=== PATIENT | male | born 1945 | race Two or more races ===

== ENCOUNTER → 2016-08-16 | Outpatient (CLI) | payer MEDICARE, OTHER, BC ==
[2016-08-16 10:16] LABS: FREE T3 3.71 pg/mL (2.77-5.27)
[2016-08-16 10:30] LABS: THYROID STIMULATING HORMONE 2.09 uIU/mL (0.47-4.68)
[2016-08-16 11:01] LABS: FOLATE 9.54 ng/mL (>2.76)
== END ==
LOC: OD 08:43
PROVIDERS: ATTEND Specialist
DX: F03.90 Unspecified dementia, unspecified severity, without behavioral disturbance, psychotic disturbance, mood disturbance, and anxiety (principal); G47.33 Obstructive sleep apnea (adult) (pediatric)
CPT/HCPCS: 36415; 82607; 82746; 84439; 84443; 84481; 86376

== ENCOUNTER → 2016-11-17 | Outpatient (CLI) | payer BC, MEDICARE, OTHER ==
[2016-11-17 09:18] LABS: ABSOLUTE BASOPHILS # (AUTO) 0.1 10^3/uL (0.0-0.2); ABSOLUTE EOSINOPHILS # (AUTO) 0.1 10^3/uL (0.0-0.6); ABSOLUTE LYMPHOCYTES (AUTO) 1.4 10^3/uL (0.5-4.7); ABSOLUTE MONOCYTES (AUTO) 0.4 10^3/uL (0.1-1.4); ABSOLUTE NEUT (AUTO) 3.3 10^3/uL (1.7-8.2); EOSINOPHILS % (AUTO) 2.4 % (0-6); HEMATOCRIT 37.5 % (37.9-51.0); HEMOGLOBIN 12.9 g/dL (13.5-17.0); HGB HCT DIFFERENCE 1.2; LYMPHOCYTES % (AUTO) 26.8 % (13-45); MEAN CORPUSCULAR HEMOGLOBIN 31.4 pg (27.0-33.4); MEAN CORPUSCULAR HGB CONC 34.3 g/dL (32.0-36.0); MEAN CORPUSCULAR VOLUME 91 fl (80-97); MONOCYTES % (AUTO) 7.5 % (3-13); RED CELL DISTRIBUTION WIDTH 13.6 % (11.5-14.0); SEGMENTED NEUTROPHILS % (AUTO) 62.3 % (42-78); WHITE BLOOD COUNT 5.2 10^3/uL (4.0-10.5)
[2016-11-17 09:43] LABS: ALANINE AMINOTRANSFERASE 26 U/L (21-72); ALBUMIN 3.9 g/dL (3.5-5.0); ALKALINE PHOSPHATASE 57 U/L (38-126); ANION GAP 9 (5-19); ASPARTATE AMINO TRANSFERASE 19 U/L (17-59); BILIRUBIN,DIRECT 0.3 mg/dL (0.0-0.4); BILIRUBIN,TOTAL 0.7 mg/dL (0.2-1.3); BLOOD UREA NITROGEN 18 mg/dL (7-20); CALCIUM 9.2 mg/dL (8.4-10.2); CARBON DIOXIDE 26 mmol/L (22-30); CHLORIDE 108 mmol/L (98-107); CHOLESTEROL 170.96 mg/dL (0-200); CREATININE RESULT 0.82 mg/dL (0.52-1.25); Direct HDL 46 mg/dL (>40); GLUCOSE 130 mg/dL (75-110); SODIUM 143.1 mmol/L (137-145); TOTAL PROTEIN 6.6 g/dL (6.3-8.2); TRIGLYCERIDES 62 mg/dL (<150)
[2016-11-17 09:54] LABS: DIRECT LDL 114 mg/dL (<100)
== END ==
LOC: OD 08:11
PROVIDERS: ATTEND Internal Medicine
DX: Z12.5 Encounter for screening for malignant neoplasm of prostate (principal); Z12.12 Encounter for screening for malignant neoplasm of rectum; I10 Essential (primary) hypertension; F32.9 Major depressive disorder, single episode, unspecified; E78.2 Mixed hyperlipidemia; Z79.899 Other long term (current) drug therapy
CPT/HCPCS: 36415; 84443; 85025; 82272; 80053; 80061; G0103

== ENCOUNTER 2016-12-05 04:02 | Emergency (ER) | payer BC, MEDICARE, OTHER ==
--- NOTE | 2016-12-05 06:05 | ER Document Report ---
ED Extremity Problem, Lower - General Chief Complaint: Ankle Pain Stated Complaint: LEFT ANKLE PAIN Time Seen by Provider: 12/05/16 06:01 Notes: The patient is a 71-year-old male, past medical history gout, OA, DM, HTN, peripheral neuropathy, presents with 1 days of left ankle pain. He has not had this pain before and does not remember an injury. 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 Denies redness, fevers, numbness, tingling or any other joint pain. TRAVEL OUTSIDE OF THE [place] IN LAST 30 DAYS: No - Related Data Allergies/Adverse Reactions: No Known Allergies Allergy (Verified 03/01/16 15:03) Past Medical History - General Information source: Patient - Social History Smoking Status: Current Every Day Smoker Family History: Reviewed & Not Pertinent Patient has suicidal ideation: No Patient has homicidal ideation: No - Past Medical History Cardiac Medical History: Reports: Hx Coronary Artery Disease, Hx Hypercholesterolemia, Hx Hypertension Denies: Hx Congestive Heart Failure, Hx DVT, Hx Heart Attack, Hx Pulmonary Embolism Pulmonary Medical History: Denies: Hx Asthma, Hx Bronchitis, Hx COPD, Hx Pneumonia, Hx Tuberculosis Neurological Medical History: Denies: Hx Cerebrovascular Accident, Hx Seizures Endocrine Medical History: Reports: Hx Diabetes Mellitus Type 1, Hx Diabetes Mellitus Type 2. Denies: Hx Hyperthyroidism, Hx Hypothyroidism Renal/ Medical History: Denies: Hx Peritoneal Dialysis GI Medical History: Denies: Hx Cirrhosis, Hx Gastroesophageal Reflux Disease, Hx Hepatitis Musculoskeltal Medical History: Reports Hx Arthritis Skin Medical History: Denies Hx Eczema, Denies Hx Psoriasis Psychiatric Medical History: Denies: Hx Depression Infectious Medical History: Denies: Hx Hepatitis Past Surgical History: Reports: Hx Abdominal Surgery, Hx Appendectomy, Hx Herniorrhaphy. Denies: Hx Pacemaker - Immunizations Hx Diphtheria, Pertussis, Tetanus Vaccination: Yes Review of Systems - Review of Systems Notes: REVIEW OF SYSTEMS: CONSTITUTIONAL: -fevers, -chills EENT: -eye pain, -difficulty swallowing, -nasal congestion CARDIOVASCULAR:-chest pain, -syncope. RESPIRATORY: -cough, -SOB GASTROINTESTINAL: -abdominal pain, - nausea, -vomiting, -diarrhea GENITOURINARY: -dysuria, -hematuria MUSCULOSKELETAL: +left ankle pain, -back pain, -neck pain SKIN: -rash or skin lesions. HEMATOLOGIC: -easy bruising or bleeding. LYMPHATIC: -swollen, enlarged glands. NEUROLOGICAL: -altered mental status or loss of consciousness, -headache, - neurologic symptoms PSYCHIATRIC: -anxiety, -depression. ALL OTHER SYSTEMS REVIEWED AND NEGATIVE. Physical Exam - Vital signs Vitals: Temp Pulse Resp BP Pulse Ox 98 F 70 18 156/64 H 96 12/05/16 04:12 12/05/16 04:12 12/05/16 04:12/05/16 04:12/05/16 04:12 - Notes Notes: PHYSICAL EXAMINATION: GENERAL: Well-appearing, well-nourished and in no acute distress. HEAD: Atraumatic, normocephalic. EYES: Pupils equal round and reactive to light, extraocular movements intact, sclera anicteric, conjunctiva are normal. ENT: nares patent, oropharynx clear without exudates. Moist mucous membranes. NECK: Normal range of motion, supple without lymphadenopathy LUNGS: Breath sounds clear to auscultation bilaterally and equal. No wheezes rales or rhonchi. HEART: Regular rate and rhythm without murmurs ABDOMEN: Soft, nontender, normoactive bowel sounds. No guarding, no rebound. No masses appreciated. EXTREMITIES: Normal range of motion, no pitting or edema. No cyanosis. No ankle swelling or redness. Tenderness over left medial malleolus. NEUROLOGICAL: Cranial nerves grossly intact. Normal speech, normal gait. Normal sensory and motor exams. PSYCH: Normal mood, normal affect. SKIN: Warm, Dry, normal turgor, no rashes or lesions noted. Course - Re-evaluation Re-evalutation: Patient appears well and no evidence of septic joint. X-ray does not show anything acute fractures or other findings. Instructed him to begin anti- inflammatories and follow-up with his primary care physician and orthopedics as needed. - Vital Signs Vital signs: Temp Pulse Resp BP Pulse Ox 98 F 70 18 156/64 H 96 12/05/16 04:12 12/05/16 04:12 12/05/16 04:12/05/16 04:12/05/16 04:12 - Diagnostic Test Radiology reviewed: Image reviewed, Reports reviewed Radiology results interpreted by me: Left ankle x-ray: NAD Discharge - Discharge Clinical Impression: Left ankle pain Qualifiers: Chronicity: acute Qualified Code(s): M25.572 - Pain in left ankle and joints of left foot Condition: Stable Disposition: HOME, SELF-CARE Additional Instructions: Take Motrin or Naprosyn to help with any ankle pain. Follow-up with your primary care physician. Arthralgia Arthralgia is pain in the joints. We use the word arthralgia to describe joint pain where there's no history of injury, no known joint disease, and the joints are normal to examination. Arthralgia can be a symptom of an acute illness, such as influenza, hepatitis, or serum sickness. Sometimes the joint pain comes before any other symptoms. Arthralgia can also be an early symptom of joint disease, such as rheumatoid arthritis or lupus. If arthralgia is accompanied by an acute illness that explains the joint pain, such as mononucleosis, no further testing needs to be done. When there's no clear reason for the pain, tests may be done to see if there's an inflammatory disease of the joints. The usual treatment is anti-inflammatory medication, such as ibuprofen. Joint aches can be soothed with a heating pad or hot compress. If joints remain painful more than a few days, you'll need testing and followup. Return if a joint becomes swollen, red, or severely painful. Forms: Elevated Blood Pressure Referrals: REAL KHALIL MD [Primary Care Provider] - Follow up as needed
[2016-12-05] MEDS ORDERED: NAPROXEN 250 MG TABLET PO ONE (06:29)
--- NOTE | 2016-12-05 06:30 | RADIOLOGY REPORT (SQ) ---
EXAM DESCRIPTION: ANKLE LEFT COMPLETE COMPLETED DATE/TIME: 12/05/2016 6:17 am REASON FOR STUDY: left ankle pain . Pain at the medial malleolus. COMPARISON: None. NUMBER OF VIEWS: Three views. TECHNIQUE: AP, lateral, and oblique radiographic images acquired of the left ankle. LIMITATIONS: None. FINDINGS: MINERALIZATION: Normal. BONES: No acute fracture or dislocation. JOINTS: No effusion. SOFT TISSUES: No soft tissue swelling. No radiopaque foreign body. Vascular calcifications are noted . IMPRESSION: No radiographic evidence of acute injury. TECHNICAL DOCUMENTATION: JOB ID: [id number] [place]-[id number] [employer]- All Rights Reserved
[2016-12-05 06:56] VITALS: BP 142/59
== END 2016-12-05 06:54 | disposition home or self-care (01) ==
LOC: ER 04:02
DX: M25.572 Pain in left ankle and joints of left foot (principal); M10.9 Gout, unspecified; M19.90 Unspecified osteoarthritis, unspecified site; E11.9 Type 2 diabetes mellitus without complications; I10 Essential (primary) hypertension; F17.200 Nicotine dependence, unspecified, uncomplicated
CPT/HCPCS: 99283

== ENCOUNTER → 2017-04-27 | Outpatient (CLI) | payer BC, MEDICARE, OTHER ==
--- NOTE | 2017-04-27 13:08 | XCELERA REPORT ---
[address] [address] Lower Extremity Arterial Evaluation Name: TONIARICHARD DAN Age: 72 yrs Gender: Male : 1945 Patient Status: Outpatient Patient Location: Study Date: 04/27/2017 08:11 AM Procedure: A color flow and duplex scan of the lower extremity arteries was performed bilaterally with velocity and waveform anaylsis. Ankle brachial indicies performed. Reason For Study: LEG PAIN Ordering Physician: FEDERICA KELLY Performed By: Ninfa Estevez Measurements and Calculations Right Left UM RN PSV 188.6 147.6 cm/sec Prox PFA PSV -124.5 -156.3 cm/sec Prox SFA PSV -128.9 113.1 cm/sec Mid SFA PSV -111.9 -97.8 cm/sec Dist SFA PSV -104.8 -103.9 cm/sec Prox Pop A PSV 98.7 102.6 cm/sec Dist ZHANNA PSV 91.8 36.3 cm/sec Prox GREEN HIDE INSPECTOR PSV 37.9 cm/sec Mid GREEN HIDE INSPECTOR PSV 39.3 41.1 cm/sec Dist GREEN HIDE INSPECTOR PSV 23.0 20.6 cm/sec Abdon Pedis PSV 79.9 76.1 cm/sec Right Side Arterial Evaluation Normal velocity and triphasic waveforms noted from the Common Femoral artery to the Anterior Tibial artery. Biphasic with well preserved amplitude in the Posterior Tibial artery'/. 0-19% stenosis at the Posterior Tibial artery Ankle Brachial index is 0.8. Left Side Arterial Evaluation Normal velocity and triphasic waveforms noted from the Common Femoral artery to the Popliteal artery. Biphasic with well preserved amplitude in the infrageniculate vessels. 0-19% stenosis at the infrageniculate level Ankle Brachial index is 0.8. Interpretation Summary Mild hemodynamically significant lesions in the bilateral lower extremities, on duplex imaging, at rest. : FEDERICA KELLY > Federica Kelly
== END ==
LOC: SP 07:44
PROVIDERS: ATTEND Surgery
DX: M79.606 Pain in leg, unspecified (principal)
CPT/HCPCS: 93925

== ENCOUNTER 2017-08-30 10:20 | Emergency (ER) | payer BC, MEDICARE, OTHER ==
[2017-08-30 10:28] VITALS: BP 156/68
--- NOTE | 2017-08-30 10:37 | ER Document Report ---
HPI - HPI Patient complains to provider of: Left low back pain Onset: Yesterday - Evening Quality of pain: Achy, Throbbing Pain Level: 4 Context: 72-year-old male that works at the [employer] is complaining of left low back pain that radiates down his left leg. It hurts worse when he moves and walks on his left leg. He has had back pain in the past but no radiculopathy into the left leg. There is no recent injury. No fever or chills. No IV drug use. His PCP is Dr. Murrell. Denies chest pain, shortness of breath, abdominal pain, penis pain and testicle pain. Patient has told that he has neuropathy due to his diabetes in the past. 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 [employer] Lives with: Family Family History: Reviewed & Not Pertinent - Past Medical History Cardiac Medical History: Reports: Hx Coronary Artery Disease, Hx Hypercholesterolemia, Hx Hypertension Endocrine Medical History: Reports: Hx Diabetes Mellitus Type 1, Hx Diabetes Mellitus Type 2 Renal/ Medical History: Denies: Hx Peritoneal Dialysis Musculoskeltal Medical History: Reports Hx Arthritis Past Surgical History: Reports: Hx Abdominal Surgery, Hx Appendectomy, Hx Herniorrhaphy - Immunizations Hx Diphtheria, Pertussis, Tetanus Vaccination: Yes Vertical Provider Document - CONSTITUTIONAL Agree With Documented VS: Yes Exam Limitations: No Limitations - INFECTION CONTROL TRAVEL OUTSIDE OF THE [place] IN LAST 30 DAYS: No - HEENT HEENT: Normocephalic - NECK Neck: Lymphadenopathy-Right - RESPIRATORY Respiratory: Breath Sounds Normal, No Respiratory Distress - CARDIOVASCULAR Cardiovascular: Regular Rate, Regular Rhythm - GI/ABDOMEN Gastrointestinal: Abdomen Soft, Abdomen Non-Tender, No Organomegaly - BACK Back: Normal Inspection Notes: tender left SI joint area only - MUSCULOSKELETAL/EXTREMETIES Musculoskeletal/Extremeties: MAEW, FROM, Tender - see above Notes: positive doppler pulses posterior tibial bilateral - NEURO Level of Consciousness: Awake, Alert Motor/Sensory: No Motor Deficit, No Sensory Deficit Deep Tendon Reflexes: Absent - ankle and patellar - DERM Integumentary: Warm, Dry, No Rash Course - Re-evaluation Re-evalutation: 08/30/17 meds helped decrease the pain, able to move better. - Vital Signs Vital signs: Temp Pulse Resp BP Pulse Ox 97.9 F 66 16 156/68 H 100 08/30/17 10:24 08/30/17 10:24 08/30/17 10:24 08/30/17 10:24 08/30/17 10:24 Discharge - Discharge Clinical Impression: left SI joint pain Condition: Good Disposition: HOME, SELF-CARE Instructions: Acetaminophen, Low Back Pain ([facility]), Steroid Medication, Toradol Injection ([facility]), Warm Packs ([facility]) Additional Instructions: warm compress prednisone this week tylenol pain medication, take stool softener while taking the hydrocodone schedule appt with dr. bhakta this week Return to the emergency room if something worsens Prescriptions: Hydrocodone Bit/Acetaminophen [Hydrocodon-Acetaminophen 5-325] 1 each PO Q4HP PRN #15 tablet PRN Reason: Cyclobenzaprine HCl [Flexeril 10 Mg Tablet] 10 mg PO TIDP PRN #20 tablet PRN Reason: Prednisone [Deltasone 10 mg Tablet] 10 mg PO ASDIR PRN #21 tablet PRN Reason: Forms: Return to Work Referrals: REAL BHAKTA MD [Primary Care Provider] - Follow up as needed
[2017-08-30] MEDS ORDERED: ACETAMINOPHEN 325 MG TABLET PO ONE (11:08)
[2017-08-30] MEDS ORDERED: KETOROLAC TROMETHAMINE INJ/PF 30 MG/1 ML SDV IM ONE (11:08)
== END 2017-08-30 12:14 | disposition home or self-care (01) ==
LOC: ER 10:20
DX: M53.3 Sacrococcygeal disorders, not elsewhere classified (principal); M54.5 Low back pain; E11.9 Type 2 diabetes mellitus without complications; I25.10 Atherosclerotic heart disease of native coronary artery without angina pectoris; E78.00 Pure hypercholesterolemia, unspecified; I10 Essential (primary) hypertension
CPT/HCPCS: 99283; 96372; J1885

== ENCOUNTER 2017-09-14 21:10 | Observation (INO) | payer BC, MEDICARE, OTHER ==
[2017-09-14] MEDS ORDERED: HYDROMORPHONE HCL INJ/PF 2 MG/ML AMPULE IV ONE ×2 (22:09→23:11)
[2017-09-14] MEDS ORDERED: METOCLOPRAMIDE HCL INJ/PF 10 MG/2 ML SDV IV ONE (22:09)
[2017-09-14] MEDS ORDERED: NORMAL SALINE 1000 ML 1,000 ML IV ONE (22:10)
[2017-09-14] MEDS ORDERED: ONDANSETRON HCL INJ/PF 4 MG/2 ML SDV IV ONE ×2 (22:10→23:11)
[2017-09-14 22:18] LABS: ABSOLUTE BASOPHILS # (AUTO) 0.1 10^3/uL (0.0-0.2); ABSOLUTE MONOCYTES (AUTO) 0.4 10^3/uL (0.1-1.4); ABSOLUTE NEUT (AUTO) 8.8 10^3/uL (1.7-8.2); EOSINOPHILS % (AUTO) 0.1 % (0-6); HEMATOCRIT 40.9 % (37.9-51.0); LYMPHOCYTES % (AUTO) 9.7 % (13-45); MEAN CORPUSCULAR HGB CONC 34.3 g/dL (32.0-36.0); MEAN CORPUSCULAR VOLUME 88 fl (80-97); MONOCYTES % (AUTO) 3.6 % (3-13); PLATELET COUNT 134 10^3/uL (150-450); RED BLOOD COUNT 4.67 10^6/uL (4.35-5.55); RED CELL DISTRIBUTION WIDTH 13.7 % (11.5-14.0); SEGMENTED NEUTROPHILS % (AUTO) 85.6 % (42-78); TOTAL CELLS COUNTED % (AUTO) 100 %; WHITE BLOOD COUNT 10.3 10^3/uL (4.0-10.5)
[2017-09-14 22:22] LABS: ALANINE AMINOTRANSFERASE 66 U/L (21-72); ALBUMIN 4.9 g/dL (3.5-5.0); ALKALINE PHOSPHATASE 78 U/L (38-126); ASPARTATE AMINO TRANSFERASE 41 U/L (17-59); BILIRUBIN,DIRECT 0.4 mg/dL (0.0-0.4); BILIRUBIN,TOTAL 0.7 mg/dL (0.2-1.3); BLOOD UREA NITROGEN 21 mg/dL (7-20); CALCIUM 10.4 mg/dL (8.4-10.2); GLUCOSE 324 mg/dL (75-110); LIPASE 32.9 U/L (23-300); POTASSIUM 3.9 mmol/L (3.6-5.0); TOTAL PROTEIN 7.7 g/dL (6.3-8.2)
[2017-09-14 22:27] LABS: CARBON DIOXIDE 19 mmol/L (22-30); CHLORIDE 105 mmol/L (98-107); SODIUM 143.6 mmol/L (137-145)
[2017-09-14 22:30] LABS: ANION GAP 20 (5-19)
--- NOTE | 2017-09-14 22:44 | ER Document Report ---
ED General - General Chief Complaint: Abdominal Pain >50 Stated Complaint: ABDOMINAL PAIN Time Seen by Provider: 09/14/17 21:56 Notes: Patient is a 72-year-old male who presents with complaint of normal pain. Pain is mostly in the epigastric and left side of his abdomen. He says it feels just like his previous episodes of gastroparesis. 2010 he had an episode so severe that he required a feeding tube. 2015 he was admitted here with DKA and gastroparesis. He says he came earlier this time as he waited too long last time he developed DKA. He denies any fevers. No recent infections. No diarrhea. No blood in the stool. No blood in his emesis. He says his blood sugars have been fluctuating the last couple days. He said he started having the pain and vomiting around 2 PM today. TRAVEL OUTSIDE OF THE [place] IN LAST 30 DAYS: No - Related Data Allergies/Adverse Reactions: No Known Allergies Allergy (Verified 08/30/17 10:21) Past Medical History - Social History Smoking Status: Never Smoker Chew tobacco use (# tins/day): No Frequency of alcohol use: None Drug Abuse: None Family History: Reviewed & Not Pertinent Patient has suicidal ideation: No Patient has homicidal ideation: No - Past Medical History Cardiac Medical History: Reports: Hx Coronary Artery Disease, Hx Hypercholesterolemia, Hx Hypertension Denies: Hx Congestive Heart Failure, Hx DVT, Hx Heart Attack, Hx Pulmonary Embolism Pulmonary Medical History: Denies: Hx Asthma, Hx Bronchitis, Hx COPD, Hx Pneumonia, Hx Tuberculosis Neurological Medical History: Denies: Hx Cerebrovascular Accident, Hx Seizures Endocrine Medical History: Reports: Hx Diabetes Mellitus Type 1, Hx Diabetes Mellitus Type 2. Denies: Hx Hyperthyroidism, Hx Hypothyroidism Renal/ Medical History: Denies: Hx Peritoneal Dialysis GI Medical History: Denies: Hx Cirrhosis, Hx Gastroesophageal Reflux Disease, Hx Hepatitis Musculoskeltal Medical History: Reports Hx Arthritis Skin Medical History: Denies Hx Eczema, Denies Hx Psoriasis Psychiatric Medical History: Denies: Hx Depression Infectious Medical History: Denies: Hx Hepatitis Past Surgical History: Reports: Hx Abdominal Surgery, Hx Appendectomy, Hx Herniorrhaphy. Denies: Hx Pacemaker - Immunizations Hx Diphtheria, Pertussis, Tetanus Vaccination: Yes Review of Systems - Review of Systems Notes: My Normal Review Basic REVIEW OF SYSTEMS: CONSTITUTIONAL : Denies fever, chills, or sweats. Denies recent illness. EENT: Denies eye, ear, throat, or mouth pain or symptoms. Denies nasal or sinus congestion. RESPIRATORY: Denies cough, cold, or chest congestion. Denies shortness of breath, difficulty breathing, or wheezing. GASTROINTESTINAL: Abdominal pain and vomiting. GENITOURINARY: Denies difficulty urinating, painful urination, burning, frequency, or blood in urine. MUSCULOSKELETAL: Denies neck or back pain or joint pain or swelling. SKIN: Denies rash or skin lesions. NEUROLOGICAL: Denies altered mental status or loss of consciousness. Denies headache. Denies weakness or paralysis or loss of use of either side. Denies problems with gait or speech. Denies sensory or motor loss. ALL OTHER SYSTEMS REVIEWED AND NEGATIVE. Physical Exam - Vital signs Vitals: Resp BP Pulse Ox 19 237/117 H 100 09/14/17 21:15 09/14/17 21:15 09/14/17 21:15 - Notes Notes: General Appearance: Well nourished, alert, cooperative, no acute distress, moderate obvious discomfort. Actively vomiting Vitals: reviewed, See vital signs table. Head: no swelling or tenderness to the head Eyes: PERRL, EOMI, Conjuctiva clear Mouth: No decreasd moisture Lungs: No wheezing, No rales, No rhonci, No accessory muscle use, good air exchange bilaterally. Heart: Normal rate, Regular rythm, No murmur, no rub Abdomen: Normal BS, soft, No rigidity, moderate pain to palpation over the epigastric and left side of the abdomen. Patient does have a scar from his previous feeding tube. Abdomen is soft and not rigid. It is not significantly distended. Extremities: strength 5/5 in all extremities, good pulses in all extremities, no swelling or tenderness in the extremities, no edema. Skin: warm, dry, appropriate color, no rash Neuro: speech clear, oriented x 3, normal affect, responds appropriately to questions. Course - Re-evaluation Re-evalutation: 09/14/17 23:17 Patient has some improvement of his pain but is still actively vomiting and still has quite a bit of pain in his abdomen. 09/15/17 00:59 He still appears pretty uncomfortable. Medication for hypertension. He still hypertensive which is not surprising that he has so much pain. He says this feels exactly like his previous gastroparesis; however, has had several abdominal surgeries in the past. I will go forward with obtaining a CT scan of the abdomen pelvis to make sure there is nothing acutely surgical. I suspect that there is not being that his abdominal exam is still benign and that is soft and not rigid and he has no peritoneal signs.. 09/15/17 03:30 CT scan did not show any concerning findings. I did speak with Dr. Hermosillo, hospitalist, who agrees with the patient for his intractable vomiting gastroparesis. Patient's blood sugar initial response to insulin. Is now starting to trend back upward so I did order another dose of insulin. Dictation of this chart was performed using voice recognition software; therefore, there may be some unintended grammatical errors. - Vital Signs Vital signs: Temp Pulse Resp BP Pulse Ox 11 L 211/95 H 99 09/15/17 01:01 09/15/17 01:01 09/15/17 01:01 - Laboratory Result Diagrams: 09/14/17 21:00 09/14/17 21:00 Laboratory results interpreted by me: 09/14/17 09/14/17 09/14/17 21:00 21:00 21:21 Plt Count 134 L Seg Neutrophils % 85.6 H Lymphocytes % 9.7 L Absolute Neutrophils 8.8 H Carbon Dioxide 19 L Anion Gap 20 H BUN 21 H Glucose 324 H POC Glucose Calcium 10.4 H Urine Protein 30 H Urine Glucose (UA) >=500 H Urine Ketones 20 H 09/14/17 09/15/17 22:53 02:18 Plt Count Seg Neutrophils % Lymphocytes % Absolute Neutrophils Carbon Dioxide Anion Gap BUN Glucose POC Glucose 284 H 273 H Calcium Urine Protein Urine Glucose (UA) Urine Ketones - EKG Interpretation by Me Additional EKG results interpreted by me: 09/14/17 22:43 EKG is reviewed and interpreted by me. EKG shows sinus rhythm with rate of 63 bpm. Patient does have a right bundle branch block with some T-wave inversion and ST segment depression in anterolateral leads. This is unchanged comparison to his old EKG from March 02, 2016. MI interval is within normal range. QRS duration QTc intervals are slightly prolonged. Discharge - Discharge Clinical Impression: Gastroparesis due to DM, Hypertensive urgency, Hyperglycemia due to type 1 diabetes mellitus Condition: Stable Disposition: ADMITTED INPATIENT Admitting Provider: Hospitalist Unit Admitted: IMCU Referrals: REAL KHALIL MD [Primary Care Provider] - Follow up as needed
[2017-09-14 22:57] LABS: APPEARANCE,URINE CLEAR; BILIRUBIN,URINE NEGATIVE (NEGATIVE); COLOR,URINE YELLOW; GLUCOSE, URINE >=500 mg/dL (NEGATIVE); KETONES,URINE 20 mg/dL (NEGATIVE); LEUKOCYTE ESTERASE,URINE NEGATIVE (NEGATIVE); NITRITE,URINE NEGATIVE (NEGATIVE); PROTEIN,URINE 30 mg/dL (NEGATIVE); URINE SPECIFIC GRAVITY 1.021; UROBILINOGEN,URINE NEGATIVE mg/dL (<2.0)
[2017-09-14] MEDS ORDERED: INSULIN REG, HUMAN 100 UNIT/ML 3 ML VIAL (PYX) SUBCUT ONE (22:57)
[2017-09-14] MEDS ORDERED: PROMETHAZINE HCL INJ 25 MG/1 ML VIAL IM ONE (23:11)
[2017-09-14] MEDS ORDERED: HYDRALAZINE HCL INJ/PF 20 MG/1 ML SDV IV ONE (23:12)
[2017-09-15] MEDS ORDERED: FENTANYL CITRATE INJ/PF 100 MCG/2 ML AMPUL IV ONE (01:05)
[2017-09-15] MEDS ORDERED: HYDRALAZINE HCL INJ/PF 20 MG/1 ML SDV IV ONE (01:39)
--- NOTE | 2017-09-15 02:01 | RADIOLOGY REPORT (SQ) ---
EXAM DESCRIPTION: CT ABD/PELVIS WITH IV ONLY CLINICAL HISTORY: 72 years Male, abdominal pain COMPARISON: March 01, 2016 TECHNIQUE: IV contrast. Coronal and sagittal reformat. This exam was performed according to our departmental dose-optimization program, which includes automated exposure control, adjustment of the mA and/or kV according to patient size and/or use of iterative reconstruction technique. FINDINGS: Mild diffuse bowel wall thickening of the distal transverse colon, left colon, and sigmoid. Mild inflammation of mesenteric fat in the right lower abdominal quadrant. 1.9 cm, 21HU ovoid lesion at the right inguinal canal may indicate scar/seroma without suspicious interval change. No evidence of appendicitis; the appendix is not definitively discerned. Atherosclerosis. Likely benign bilateral renal cysts measure up to 1.3 cm on the left. Stable 0.7 cm grade I, L4 anterolisthesis, moderate lower lumbar spondylosis. Inferior thorax, liver, gallbladder, pancreas, spleen, adrenals, renal system, pelvic organs, lymphatics, vasculature, and musculoskeleton appear otherwise unremarkable. IMPRESSION: Mild colitis pattern.
--- NOTE | 2017-09-15 02:53 | RADIOLOGY REPORT (SQ) ---
EXAM DESCRIPTION: ACUTE ABDOMEN SERIES CLINICAL HISTORY: 72 years Male, abdominal pain COMPARISON: None. NUMBER OF VIEWS/TECHNIQUE: 3 LIMITATIONS: None. FINDINGS: Intestinal gas pattern is within normal limits. No suspicious calcification. Grossly intact skeletal structures. No acute cardiopulmonary findings. IMPRESSION: No acute findings.
[2017-09-15 03:06] LABS: CREATINE KINASE MB 4.41 ng/mL (<4.55)
[2017-09-15 03:08] LABS: TROPONIN I 0.051 ng/mL
[2017-09-15] MEDS ORDERED: INSULIN REG, HUMAN 100 UNIT/ML 3 ML VIAL (PYX) SUBCUT ONE (03:24)
[2017-09-15] MEDS ORDERED: LORAZEPAM INJ 2 MG/1 ML VIAL IV PRN (03:27)
[2017-09-15] MEDS ORDERED: ACETAMINOPHEN 650 MG SUPP.RECT PR PRN (03:28)
[2017-09-15] MEDS ORDERED: DEXTROSE 50%-WATER 25 GM/50 ML DISP.SYRIN IV PRN ×2 (03:28)
[2017-09-15] MEDS ORDERED: DEXTROSE 40% GEL 15 GM TUBE PO PRN ×2 (03:28)
[2017-09-15] MEDS ORDERED: IPRATROPIUM/ALBUTEROL 0.5-2.5 MG/3 ML AMPUL NEB PRN (03:28)
[2017-09-15] MEDS ORDERED: GLUCAGON,HUMAN RECOMB 1 MG INJ IM PRN (03:28)
[2017-09-15] MEDS ORDERED: ACETAMINOPHEN 325 MG TABLET PO PRN (03:28)
[2017-09-15] MEDS ORDERED: ENALAPRILAT DIHYDRATE INJ/PF 1.25 MG/1 ML SDV IV PRN (03:31)
[2017-09-15] MEDS ORDERED: HYDRALAZINE HCL INJ/PF 20 MG/1 ML SDV IV PRN (03:31)
[2017-09-15] MEDS: NORMAL SALINE 1000 ML 1,000 ML IV SCH ×2 (03:57→06:53)
[2017-09-15] MEDS ORDERED: NITROGLYCERIN 2% OINTMENT 1 GM PACKET TP ONE (05:16)
[2017-09-15] MEDS: HEPARIN SOD (PORCINE) 5,000 UNIT/ML 1 ML SYRINGE SUBCUT SCH ×2 (05:40→13:55)
[2017-09-15] MEDS ORDERED: CIPROFLOXACIN 400 MG/D5W RTU 400 MG/200 ML RTUPB IV SCH (06:00)
[2017-09-15] MEDS: INSULIN LISPRO 100 UNIT/ML 3 ML VIAL SUBCUT PRN ×2 (06:48→13:34)
[2017-09-15] MEDS: METRONIDAZOLE 500 MG TABLET PO SCH ×2 (06:52→13:37)
--- NOTE | 2017-09-15 07:51 | EKG REPORT ---
SEVERITY:- ABNORMAL ECG - SINUS RHYTHM SUPRAVENTRICULAR BIGEMINY PROBABLE LEFT ATRIAL ABNORMALITY RIGHT BUNDLE BRANCH BLOCK BORDERLINE ST DEPRESSION, LATERAL LEADS : Confirmed by: Jose Iqbal MD 15-Sep-2017 07:50:48
[2017-09-15 09:27] VITALS: BP 107/57
--- NOTE | 2017-09-15 15:50 | PDOC DISCHARGE SUMMARY ---
General - Admit/Disc Date/PCP Admission Date/Primary Care Provider: 09/15/17 03:38 REAL KHALIL MD Discharge Date: 09/15/17 - Discharge Diagnosis (1) Gastroparesis due to DM Is this a current diagnosis for this admission?: Yes (2) Hyperglycemia due to type 1 diabetes mellitus Is this a current diagnosis for this admission?: Yes (3) Upper abdominal pain Is this a current diagnosis for this admission?: Yes (4) Anxiety Is this a current diagnosis for this admission?: Yes - Additional Information Prescriptions: Lorazepam [Ativan 0.5 mg Tablet] 0.5 mg PO Q4 PRN #15 tab PRN Reason: Home Medications: Amlodipine Besylate [Norvasc 10 mg Tablet] 10 mg PO DAILY 09/15/17 Aspirin [Aspirin EC] 81 mg PO DAILY 09/15/17 Atorvastatin Calcium [Lipitor 80 mg Tablet] 80 mg PO QHS 09/15/17 Duloxetine HCl [Cymbalta] 60 mg PO QHS 09/15/17 Ergocalciferol (Vitamin D2) [Vitamin D2] 50,000 unit PO ASDIR 09/15/17 Glimepiride [Amaryl 4 mg Tablet] 8 mg PO QHS 09/15/17 Hydrochlorothiazide [Hydrodiuril 25 mg Tablet] 25 mg PO QAM 09/15/17 Insulin Aspart [Novolog Insulin (Aspart) 100 unit/mL] 0 unit SUBCUT .SLD SCALE 09/15/17 Insulin Glargine,Hum.rec.anlog [Lantus Solostar] 10 unit SQ QAM 09/15/17 Insulin Glargine,Hum.rec.anlog [Lantus Solostar] 40 unit SQ QHS 09/15/17 Lorazepam [Ativan 0.5 mg Tablet] 0.5 mg PO Q4 PRN #15 tab 09/15/17 Metformin HCl [Metformin HCl ER] 2,000 mg PO [id number] 09/15/17 Metoprolol Succinate [Toprol Xl 25 mg Tab.sr] 25 mg PO DAILY 09/15/17 Nitroglycerin [Nitrostat 0.4 mg (1/150 Gr) Tabs 25/Bottle] 1 tab SL Q5MP PRN Tramadol HCl/Acetaminophen [Ultracet 37.5 mg/325 mg Tablet] 1 each PO TIDP PRN 09/15/17 Valsartan [Diovan] 320 mg PO DAILY 09/15/17 History of Present Illness History of Present Illness: RICHARD RANDALL JR is a 72 year old male patient iwho presented with complaint of abdominal pain. Pain was mostly in the epigastric and left side of his abdomen. He related it felt just like his previous episodes of gastroparesis. In 2010 he had an episode so severe that he required a feeding tube. In 2015 he was admitted here with DKA and gastroparesis. He came earlier this time as he waited too long last time he developed DKA. He denies any fevers. No recent infections. No diarrhea. No blood in the stool. No blood in his emesis. He stated his blood sugars have been fluctuating the last couple days. He said he started having the pain and vomiting around 2 PM today Hospital Course Hospital Course: Patient was admitted under hospitalist service. Symptoms abated when he was given Ativan IV. Daughter was at bedside and stated that patient started throwing up after got a call from some collectors. Also patient does not rest well since works 6 days a week. Patient had been tolerating oral intake. He has been advised as to check his blood sugar on a regular basis to find a trend if intensity of symptoms may relate to increased blood sugar which probably is likely the case. Patient will be discharged since stable and will prescribe a short supply of ativan which will help with anxiety and nausea. He also had been given a work excuse to return back to work on September 19. Patient is to follow-up with his primary care provider within 1 week following discharge Physical Exam Vital Signs: Temp Pulse Resp BP Pulse Ox 99.4 F 67 18 107/57 L 97 09/15/17 07:27 09/15/17 11:10 09/15/17 11:10 09/15/17 07:27 09/15/17 11:10 Intake & Output 09/14/17 09/15/17 09/16/17 06:59 06:59 06:59 Intake Total 450 Output Total 900 Balance -900 450 Weight 72.9 kg General appearance: PRESENT: no acute distress, cooperative, well-developed, well-nourished Head exam: PRESENT: atraumatic, normocephalic Eye exam: PRESENT: conjunctiva pink, EOMI, PERRLA Ear exam: PRESENT: normal external ear exam Mouth exam: PRESENT: moist Neck exam: PRESENT: full ROM. ABSENT: JVD, lymphadenopathy, tenderness Respiratory exam: PRESENT: clear to auscultation arnold Cardiovascular exam: PRESENT: RRR. ABSENT: diastolic murmur, systolic murmur Vascular exam: PRESENT: normal capillary refill GI/Abdominal exam: PRESENT: normal bowel sounds, soft, tenderness Extremities exam: PRESENT: full ROM. ABSENT: pedal edema Musculoskeletal exam: PRESENT: ambulatory Neurological exam: PRESENT: alert, awake, oriented to person, oriented to place , oriented to time, oriented to situation, CN II-XII grossly intact Psychiatric exam: PRESENT: anxious Skin exam: PRESENT: intact, normal color Results Impressions: Acute Abdomen Series 09/14/17 23:10 IMPRESSION: No acute findings. Abdomen/Pelvis CT 09/15/17 00:58 IMPRESSION: Mild colitis pattern. Qualifiers - * PATIENT BEING DISCHARGED WITH ANY OF THE FOLLOWING DIAGNOSIS: No Plan Discharge Plan: Discharge home. Patient able to return back to work on September 19 Time Spent: Less than 30 Minutes
--- NOTE | 2017-09-19 06:48 | PDOC H&P ---
History of Present Illness Admission Date/PCP: 09/15/17 03:38 REAL KHALIL MD Patient complains of: Intractable nausea and vomiting History of Present Illness: RICHARD RANDALL JR is a 72 year old male with history of insulin-dependent diabetes, gastroparesis and anxiety. Patient presents with 24 hours of intractable nausea vomiting gastric content. In the emergency room he has hyperglycemia but otherwise unremarkable workup. Patient is still intolerant of p.o. despite IV antiemetics and referred the hospitalist for admission. Patient denies recent changes in medication. He denies chest pain fever chills palpitations or shortness of breath. Past Medical History Cardiac Medical History: Reports: Coronary Artery Disease, Hyperlipidema, Hypertension Denies: Congestive Heart Failure, DVT, Myocardial Infarction, Pulmonary Embolism Pulmonary Medical History: Denies: Asthma, Bronchitis, Chronic Obstructive Pulmonary Disease (COPD), Pneumonia, Tuberculosis Neurological Medical History: Denies: Seizures Endocrine Medical History: Reports: Diabetes Mellitus Type 1, Diabetes Mellitus Type 2 Denies: Hyperthyroidism, Hypothyroidism GI Medical History: Denies: Cirrhosis, Gastroesophageal Reflux Disease, Hepatitis Musculoskeltal Medical History: Reports: Arthritis Skin Medical History: Denies: Eczema, Psoriasis Psychiatric Medical History: Denies: Depression Hematology: Denies: Anemia Past Surgical History Past Surgical History: Reports: Appendectomy, Herniorrhaphy Denies: Pacemaker Social History Information Source: Patient, [facility] Records Lives with: Family Smoking Status: Never Smoker Frequency of Alcohol Use: Rare Hx Recreational Drug Use: No Drugs: None Hx Prescription Drug Abuse: No - Advance Directive Resuscitation Status: Full Code Family History Family History: Hyperlipidemia, Hypertension Parental Family History Reviewed: Yes Children Family History Reviewed: Yes Sibling(s) Family History Reviewed.: Yes Medication/Allergy Home Medications: Aspirin [Aspirin EC] 81 mg PO DAILY 09/15/17 Atorvastatin Calcium [Lipitor 80 mg Tablet] 80 mg PO QHS 09/15/17 Duloxetine HCl [Cymbalta] 60 mg PO QHS MDD TAPERING OFF 09/15/17 Insulin Aspart [Novolog Insulin (Aspart) 100 unit/mL] 0 unit SUBCUT .SLD SCALE 09/15/17 Insulin Glargine,Hum.rec.anlog [Lantus Solostar] 10 unit SQ QAM 09/15/17 Insulin Glargine,Hum.rec.anlog [Lantus Solostar] 40 unit SQ QHS 09/15/17 Metformin HCl [Metformin HCl ER] 2,000 mg PO WBRKFST 09/15/17 Nitroglycerin [Nitrostat 0.4 mg (1/150 Gr) Tabs 25/Bottle] 1 tab SL Q5MP PRN Tramadol HCl/Acetaminophen [Ultracet 37.5 mg/325 mg Tablet] 1 each PO Q8HP PRN 09/15/17 Valsartan [Diovan] 320 mg PO DAILY 09/15/17 Empagliflozin [Jardiance] 25 mg PO DAILY 09/18/17 Tamsulosin HCl [Flomax 0.4 mg Cap.sr] 0.4 mg PO DAILY 09/18/17 Allergies/Adverse Reactions: No Known Allergies Allergy (Verified 08/30/17 10:21) Review of Systems Constitutional: ABSENT: chills, fever(s), headache(s), weight gain, weight loss Eyes: ABSENT: visual disturbances Ears: ABSENT: hearing changes Cardiovascular: ABSENT: chest pain, dyspnea on exertion, edema, orthropnea, palpitations Respiratory: ABSENT: cough, hemoptysis Gastrointestinal: ABSENT: abdominal pain, constipation, diarrhea, hematemesis, hematochezia, nausea, vomiting Genitourinary: ABSENT: dysuria, hematuria Musculoskeletal: ABSENT: joint swelling Integumentary: ABSENT: rash, wounds Neurological: ABSENT: abnormal gait, abnormal speech, confusion, dizziness, focal weakness, syncope Psychiatric: ABSENT: anxiety, depression, homidical ideation, suicidal ideation Endocrine: ABSENT: cold intolerance, heat intolerance, polydipsia, polyuria Hematologic/Lymphatic: ABSENT: easy bleeding, easy bruising Physical Exam Vital Signs: Temp Pulse Resp BP Pulse Ox 99.4 F 67 18 107/57 L 97 09/15/17 13:17 09/15/17 13:17 09/15/17 13:17 09/15/17 07:27 09/15/17 13:17 General appearance: PRESENT: no acute distress, well-developed, well-nourished Head exam: PRESENT: atraumatic, normocephalic Eye exam: PRESENT: conjunctiva pink, EOMI, PERRLA. ABSENT: scleral icterus Ear exam: PRESENT: normal external ear exam Mouth exam: PRESENT: moist, tongue midline Neck exam: ABSENT: carotid bruit, JVD, lymphadenopathy, thyromegaly Respiratory exam: PRESENT: clear to auscultation arnold. ABSENT: rales, rhonchi, wheezes Cardiovascular exam: PRESENT: RRR. ABSENT: diastolic murmur, rubs, systolic murmur Pulses: PRESENT: normal dorsalis pedis pul Vascular exam: PRESENT: normal capillary refill GI/Abdominal exam: PRESENT: normal bowel sounds, soft. ABSENT: distended, guarding, mass, organolmegaly, rebound, tenderness Rectal exam: PRESENT: deferred Extremities exam: PRESENT: full ROM. ABSENT: calf tenderness, clubbing, pedal edema Neurological exam: PRESENT: alert, awake, oriented to person, oriented to place , oriented to time, oriented to situation, CN II-XII grossly intact. ABSENT: motor sensory deficit Psychiatric exam: PRESENT: anxious, normal mood. ABSENT: homicidal ideation, suicidal ideation Skin exam: PRESENT: dry, intact, warm. ABSENT: cyanosis, rash Results Impressions: Acute Abdomen Series 09/14/17 23:10 IMPRESSION: No acute findings. Abdomen/Pelvis CT 09/15/17 00:58 IMPRESSION: Mild colitis pattern. Assessment & Plan - Diagnosis (1) Type 1 diabetes Is this a current diagnosis for this admission?: Yes Plan: Evaluate A1c, outpatient regiment with Humalog sliding scale (2) Anxiety Is this a current diagnosis for this admission?: Yes Plan: Trazodone and benzodiazepine. (3) Gastroparesis due to DM Is this a current diagnosis for this admission?: Yes Plan: Refractory to antiemetics and Reglan. Requiring IV benzodiazepine. Continue supportive care and reassurance. - Time Time Spent: 30 to 50 Minutes - Inpatient Certification Medical Necessity: Need Close Monitoring Due to Risk of Patient Decompensation
== END 2017-09-15 15:03 | disposition home or self-care (01) ==
LOC: ER 21:10 → EH 09-15 03:38 → INTOOBSV 09-15 03:38 → 3S 09-15 05:50
PROVIDERS: ADMIT Internal Medicine; ATTEND Internal Medicine
DX: E10.43 Type 1 diabetes mellitus with diabetic autonomic (poly)neuropathy (principal); E10.65 Type 1 diabetes mellitus with hyperglycemia; K31.84 Gastroparesis; R10.13 Epigastric pain; F41.9 Anxiety disorder, unspecified; I25.10 Atherosclerotic heart disease of native coronary artery without angina pectoris; I16.0 Hypertensive urgency; E78.5 Hyperlipidemia, unspecified; Z79.82 Long term (current) use of aspirin; Z79.899 Other long term (current) drug therapy; Z90.49 Acquired absence of other specified parts of digestive tract; Z98.890 Other specified postprocedural states
CPT/HCPCS: 93005; 96376; 99285; 96372; 96361; 96374; 96375; 36415 ×2; 82553; 82962 ×2; 82550; 83690; 85025; 80053; 81001; 84484; 74022; 74177; 93010; G0378 ×2; J1644; J3010; J0360 ×2; J1815 ×3; J2765; J1170; J2550; J2405; J7030 ×2; J3490; J0744

== ENCOUNTER 2017-09-16 19:58 | Emergency (ER) | payer BC, MEDICARE, OTHER ==
[2017-09-16] MEDS ORDERED: ONDANSETRON 4 MG TAB.RAPDIS PO ONE (20:13)
[2017-09-16] MEDS ORDERED: LORAZEPAM INJ 2 MG/1 ML VIAL IV ONE ×2 (20:48→23:27)
[2017-09-16] MEDS ORDERED: NORMAL SALINE 1000 ML 1,000 ML IV ONE ×2 (20:48→23:27)
--- NOTE | 2017-09-16 20:50 | ER Document Report ---
ED GI/ - General Chief Complaint: Upper Abdominal Pain Stated Complaint: VOMITING Time Seen by Provider: 09/16/17 20:05 Notes: Patient is a 72-year-old male comes emergency department for chief complaint of vomiting. He does report of upper abdominal pain as well. He states that he was sent home 2 days ago after being admitted for intractable vomiting, states that he was doing fine and eating well until he was driving and he started feeling nauseated, he states he started dry heaving and when he continued to do so he came back to the emergency department. He did not take any of the medications prescribed to him upon discharge but he is taking his home daily medications. He has a history of gastroparesis, insulin-dependent type 2 diabetes, hypertension. He states that usually he can get over his symptoms and he has only been admitted once when he had DKA. He has had an appendectomy , hernia repair, and he used to have a PEG tube due to the gastroparesis but no longer needs it. 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 Only other reported past medical history is hypertension. TRAVEL OUTSIDE OF THE [place] IN LAST 30 DAYS: No - Related Data Allergies/Adverse Reactions: No Known Allergies Allergy (Verified 08/30/17 10:21) Past Medical History - General Information source: Patient - Social History Smoking Status: Never Smoker Frequency of alcohol use: Rare Drug Abuse: None Lives with: Family Family History: Reviewed & Not Pertinent Patient has suicidal ideation: No Patient has homicidal ideation: No - Past Medical History Cardiac Medical History: Reports: Hx Coronary Artery Disease, Hx Hypercholesterolemia, Hx Hypertension Denies: Hx Congestive Heart Failure, Hx DVT, Hx Heart Attack, Hx Pulmonary Embolism Pulmonary Medical History: Denies: Hx Asthma, Hx Bronchitis, Hx COPD, Hx Pneumonia, Hx Tuberculosis Neurological Medical History: Denies: Hx Cerebrovascular Accident, Hx Seizures Endocrine Medical History: Reports: Hx Diabetes Mellitus Type 1, Hx Diabetes Mellitus Type 2. Denies: Hx Hyperthyroidism, Hx Hypothyroidism Renal/ Medical History: Denies: Hx Peritoneal Dialysis GI Medical History: Denies: Hx Cirrhosis, Hx Gastroesophageal Reflux Disease, Hx Hepatitis Musculoskeltal Medical History: Reports Hx Arthritis Skin Medical History: Denies Hx Eczema, Denies Hx Psoriasis Psychiatric Medical History: Denies: Hx Depression Infectious Medical History: Denies: Hx Hepatitis Past Surgical History: Reports: Hx Abdominal Surgery - hernia x2, Hx Appendectomy, Hx Herniorrhaphy. Denies: Hx Pacemaker - Immunizations Hx Diphtheria, Pertussis, Tetanus Vaccination: Yes Review of Systems - Review of Systems Constitutional: No symptoms reported EENT: No symptoms reported Cardiovascular: No symptoms reported Respiratory: No symptoms reported Gastrointestinal: See HPI Genitourinary: No symptoms reported Male Genitourinary: No symptoms reported Musculoskeletal: No symptoms reported Skin: No symptoms reported Hematologic/Lymphatic: No symptoms reported Neurological/Psychological: No symptoms reported Physical Exam - Vital signs Vitals: Resp Pulse Ox 17 100 09/16/17 20:40 09/16/17 20:40 Interpretation: Normal - General General appearance: Anxious In distress: None - Patient appears mildly uncomfortable although he does not appear to be in distress - HEENT Head: Normocephalic, Atraumatic Eyes: Normal Pupils: PERRL - Respiratory Respiratory status: No respiratory distress Chest status: Nontender Breath sounds: Normal Chest palpation: Normal - Cardiovascular Rhythm: Regular. No: Tachycardia Heart sounds: Normal auscultation, S1 appreciated, S2 appreciated Murmur: No - Abdominal Inspection: Normal Distension: No distension Bowel sounds: Normal Tenderness: Tender - Mild generalized upper abdominal tenderness, nonspecific, no guarding, remaining abdominal exam unremarkable Organomegaly: No organomegaly - Back Back: Normal, Nontender - Extremities General upper extremity: Normal inspection, Nontender, Normal color, Normal ROM , Normal temperature General lower extremity: Normal inspection, Nontender, Normal color, Normal ROM , Normal temperature, Normal weight bearing. No: Rose's sign - Neurological Neuro grossly intact: Yes Cognition: Normal Orientation: AAOx4 Nichole Coma Scale Eye Opening: Spontaneous [place] Coma Scale Verbal: Oriented Nichole Coma Scale Motor: Obeys Commands [place] Coma Scale Total: 15 Speech: Normal Motor strength normal: LUE, RUE, LLE, RLE Sensory: Normal - Psychological Associated symptoms: Normal affect, Normal mood - Skin Skin Temperature: Warm Skin Moisture: Dry Skin Color: Normal Course - Re-evaluation Re-evalutation: Patient uncomfortable, dry heaving, abdomen is not rigid and only has generalized upper abdominal tenderness, he is hypertensive again like he was last time, he is not tachycardic or febrile. Because Ativan worked so well for him last time he will be given a small dose along with fluids pending workup. Acute abdominal series unremarkable. Mild leukocytosis which is nonspecific. He had a CAT scan yesterday which showed questionable mild enteritis/colitis. Chemistry showing hyperglycemia at 263, anion gap is slightly elevated at 22, bicarb is 21. Blood gas shows mild alkalosis with normal bicarbonate and slightly low CO2. A discussed with patient and daughter at bedside, patient is stating that he is hoping to go home after medications and treatment, states he has only been admitted one time previously, he is asking for additional medication at this time. I discussed his medications and situation with daughter as well, patient will continue treatment and be reevaluated. Patient did have improvement after medications, he continues to be hypertensive but he states he feels better and he appears clinically improved. He is also less anxious. Abdomen is still unremarkable. Chemistry was cycled and shows resolution of mild abnormal anion gap, potassium normalized after supplement, magnesium unremarkable. Acute abdominal series unremarkable. I did discuss patient with hospitalist, Dr. Hermosillo, patient will continue current therapy and if patient can tolerate p.o. he can follow-up with outpatient return precautions. Patient tolerated both oral medications and fluids without any difficulty. He states he feels much better and he is ready to go home. Provided with nausea medication, he already has Ativan at home, discussed follow -up and return precautions, patient states understanding and agreement. - Vital Signs Vital signs: Temp Pulse Resp BP Pulse Ox 98.0 F 78 15 192/88 H 100 09/17/17 04:36 09/17/17 04:36 09/17/17 04:36 09/17/17 04:36 09/17/17 04:36 - Laboratory Result Diagrams: 09/16/17 20:58 09/17/17 02:00 Laboratory results interpreted by me: 09/16/17 09/16/17 09/16/17 20:58 20:58 20:58 WBC 10.6 H Plt Count 143 L Seg Neutrophils % 85.9 H Lymphocytes % 8.5 L Absolute Neutrophils 9.1 H VBG pH VBG pCO2 Sodium 146.9 H Potassium 3.3 L Carbon Dioxide 21 L Anion Gap 22 H BUN 32 H Glucose 263 H Calcium 10.3 H Direct Bilirubin 0.5 H Albumin 5.1 H Urine Protein 30 H Urine Glucose (UA) >=500 H Urine Ketones 20 H 09/16/17 09/17/17 22:09 02:00 WBC Plt Count Seg Neutrophils % Lymphocytes % Absolute Neutrophils VBG pH 7.46 H VBG pCO2 29.3 L Sodium 147.1 H Potassium Carbon Dioxide Anion Gap BUN 27 H Glucose 248 H Calcium Direct Bilirubin Albumin Urine Protein Urine Glucose (UA) Urine Ketones Discharge - Discharge Clinical Impression: Gastroparesis due to DM, Anxiety Vomiting Qualifiers: Vomiting type: unspecified Vomiting Intractability: non-intractable Nausea presence: with nausea Qualified Code(s): R11.2 - Nausea with vomiting, unspecified Condition: Stable Disposition: HOME, SELF-CARE Additional Instructions: Continue rehydration, start with very bland diet, slowly progress this. Take Zofran for nausea if needed, rest. You can also take your lorazepam that was prescribed previously for anxiety and nausea. Take Pepcid as prescribed to help settle your stomach because of repeated vomiting episodes. Follow-up with primary care provider within the next several days. Return if you worsen including return or uncontrolled vomiting, fever, vomiting blood, black stools, or any other concerning or worsening symptoms. Prescriptions: Ondansetron [Zofran Odt 4 mg Tablet] 1 - 2 tab PO Q4H PRN #20 tab.rapdis PRN Reason: For Nausea/Vomiting Forms: Return to Work Referrals: REAL KHALIL MD [Primary Care Provider] - 09/19/17
[2017-09-16 21:29] LABS: APPEARANCE,URINE CLEAR; BILIRUBIN,URINE NEGATIVE (NEGATIVE); COLOR,URINE YELLOW; GLUCOSE, URINE >=500 mg/dL (NEGATIVE); KETONES,URINE 20 mg/dL (NEGATIVE); LEUKOCYTE ESTERASE,URINE NEGATIVE (NEGATIVE); NITRITE,URINE NEGATIVE (NEGATIVE); PROTEIN,URINE 30 mg/dL (NEGATIVE); URINE SPECIFIC GRAVITY 1.024; UROBILINOGEN,URINE NEGATIVE mg/dL (<2.0)
[2017-09-16 21:30] LABS: ABSOLUTE BASOPHILS # (AUTO) 0.1 10^3/uL (0.0-0.2); ABSOLUTE LYMPHOCYTES (AUTO) 0.9 10^3/uL (0.5-4.7); ABSOLUTE MONOCYTES (AUTO) 0.5 10^3/uL (0.1-1.4); ABSOLUTE NEUT (AUTO) 9.1 10^3/uL (1.7-8.2); BASOPHILS % (AUTO) 0.7 % (0-2); EOSINOPHILS % (AUTO) 0.3 % (0-6); HEMATOCRIT 45.1 % (37.9-51.0); HEMOGLOBIN 15.3 g/dL (13.5-17.0); LYMPHOCYTES % (AUTO) 8.5 % (13-45); MEAN CORPUSCULAR HEMOGLOBIN 30.2 pg (27.0-33.4); MEAN CORPUSCULAR VOLUME 89 fl (80-97); MONOCYTES % (AUTO) 4.6 % (3-13); PLATELET COUNT 143 10^3/uL (150-450); RED BLOOD COUNT 5.07 10^6/uL (4.35-5.55); RED CELL DISTRIBUTION WIDTH 13.9 % (11.5-14.0); SEGMENTED NEUTROPHILS % (AUTO) 85.9 % (42-78); TOTAL CELLS COUNTED % (AUTO) 100 %; WHITE BLOOD COUNT 10.6 10^3/uL (4.0-10.5)
[2017-09-16 21:44] LABS: ALANINE AMINOTRANSFERASE 63 U/L (21-72); ALBUMIN 5.1 g/dL (3.5-5.0); ALKALINE PHOSPHATASE 78 U/L (38-126); ASPARTATE AMINO TRANSFERASE 40 U/L (17-59); BILIRUBIN,DIRECT 0.5 mg/dL (0.0-0.4); BILIRUBIN,TOTAL 1.3 mg/dL (0.2-1.3); BLOOD UREA NITROGEN 32 mg/dL (7-20); CALCIUM 10.3 mg/dL (8.4-10.2); GLUCOSE 263 mg/dL (75-110); LIPASE 89.2 U/L (23-300); POTASSIUM 3.3 mmol/L (3.6-5.0); TOTAL PROTEIN 8.2 g/dL (6.3-8.2)
[2017-09-16 21:49] LABS: CARBON DIOXIDE 21 mmol/L (22-30); CHLORIDE 104 mmol/L (98-107); SODIUM 146.9 mmol/L (137-145)
[2017-09-16 21:51] LABS: ANION GAP 22 (5-19)
--- NOTE | 2017-09-16 22:05 | RADIOLOGY REPORT (SQ) ---
EXAM DESCRIPTION: ACUTE ABDOMEN SERIES COMPLETED DATE/TIME: 09/16/2017 9:45 pm REASON FOR STUDY: uncontrolled vomiting COMPARISON: 09/14/2017 NUMBER OF VIEWS: Three views. TECHNIQUE: Frontal chest, supine abdomen and upright/decubitus abdomen radiographic images acquired. LIMITATIONS: None. FINDINGS: CHEST: Lungs clear of infiltrates. FREE AIR: None. No abnormal gas collections. BOWEL GAS PATTERN: Nonobstructive pattern. No dilated loops or air fluid levels. CALCIFICATIONS: No suspicious calcifications. HARDWARE: None in the abdomen. SOFT TISSUES: No gross mass or suggestion of organomegaly. BONES: No acute fracture. No worrisome bone lesions. OTHER: No other significant finding. IMPRESSION: NO RADIOGRAPHIC EVIDENCE FOR ACUTE ABDOMINAL DISEASE. TECHNICAL DOCUMENTATION: JOB ID: [id number] [employer]- All Rights Reserved Reading location - IP/workstation name: [email or web address]
[2017-09-16 22:22] LABS: VENOUS BLOOD BASE EXCESS -1.9 mmol/L; VENOUS BLOOD HCO3 20.5 mmol/L (20-32); VENOUS BLOOD PCO2 29.3 mmHg (35-63); VENOUS BLOOD PH 7.46 (7.30-7.42)
[2017-09-16] MEDS ORDERED: METOCLOPRAMIDE HCL INJ/PF 10 MG/2 ML SDV IV ONE (23:27)
[2017-09-17] MEDS ORDERED: POTASSIUM CHLORIDE 10 MEQ TABLET.SA PO ONE (00:31)
[2017-09-17] MEDS ORDERED: SUCRALFATE 1 GM TABLET PO ONE (01:04)
[2017-09-17] MEDS ORDERED: FAMOTIDINE 20 MG TABLET PO ONE (01:04)
[2017-09-17 02:37] LABS: ANION GAP 19 (5-19); BLOOD UREA NITROGEN 27 mg/dL (7-20); CALCIUM 8.8 mg/dL (8.4-10.2); CARBON DIOXIDE 23 mmol/L (22-30); CHLORIDE 105 mmol/L (98-107); GLUCOSE 248 mg/dL (75-110); POTASSIUM 3.7 mmol/L (3.6-5.0); SODIUM 147.1 mmol/L (137-145)
[2017-09-17] MEDS ORDERED: DIAZEPAM INJ 10 MG/2 ML DISP.SYRIN IV ONE (03:08)
[2017-09-17] MEDS ORDERED: ONDANSETRON ODT 4 MG TAB (6 TAB/ER DISP) PO PRN (04:19)
[2017-09-17 04:38] VITALS: BP 192/88
--- NOTE | 2017-09-17 08:26 | EKG REPORT ---
SEVERITY:- ABNORMAL ECG - SINUS ARRHYTHMIA PROBABLE LEFT ATRIAL ABNORMALITY RIGHT BUNDLE BRANCH BLOCK NONSPECIFIC ST-T CHANGES, DIFFUSE : Confirmed by: Jose Iqbal MD 17-Sep-2017 08:25:32
== END 2017-09-17 04:38 | disposition home or self-care (01) ==
LOC: ER 19:58
DX: E11.43 Type 2 diabetes mellitus with diabetic autonomic (poly)neuropathy (principal); K31.84 Gastroparesis; F41.9 Anxiety disorder, unspecified; R11.2 Nausea with vomiting, unspecified; R10.10 Upper abdominal pain, unspecified; I25.10 Atherosclerotic heart disease of native coronary artery without angina pectoris; E78.00 Pure hypercholesterolemia, unspecified; I10 Essential (primary) hypertension
CPT/HCPCS: 93005; 96376; 99285; 96361; 96374; 96375; 36415; 83690; 83735; 85025; 80048; 80053; 81001; 84484; 82803; 74022; 93010; J3360; S0119; J2765; J2060; J7030

== ENCOUNTER 2017-09-18 04:45 | Inpatient (IN) | payer BC, MEDICARE, OTHER ==
[2017-09-18 06:43] LABS: ABSOLUTE LYMPHOCYTES (AUTO) 0.7 10^3/uL (0.5-4.7); ABSOLUTE MONOCYTES (AUTO) 0.3 10^3/uL (0.1-1.4); ABSOLUTE NEUT (AUTO) 8.5 10^3/uL (1.7-8.2); BASOPHILS % (AUTO) 0.2 % (0-2); EOSINOPHILS % (AUTO) 0.1 % (0-6); HEMATOCRIT 44.9 % (37.9-51.0); HEMOGLOBIN 15.5 g/dL (13.5-17.0); LYMPHOCYTES % (AUTO) 7.8 % (13-45); MEAN CORPUSCULAR HEMOGLOBIN 30.1 pg (27.0-33.4); MEAN CORPUSCULAR HGB CONC 34.6 g/dL (32.0-36.0); MEAN CORPUSCULAR VOLUME 87 fl (80-97); MONOCYTES % (AUTO) 2.7 % (3-13); PLATELET COUNT 177 10^3/uL (150-450); RED BLOOD COUNT 5.17 10^6/uL (4.35-5.55); RED CELL DISTRIBUTION WIDTH 13.5 % (11.5-14.0); SEGMENTED NEUTROPHILS % (AUTO) 89.2 % (42-78); TOTAL CELLS COUNTED % (AUTO) 100 %; WHITE BLOOD COUNT 9.5 10^3/uL (4.0-10.5)
--- NOTE | 2017-09-18 06:44 | ER Document Report ---
ED GI/ - General Chief Complaint: Vomiting Stated Complaint: VOMITING Time Seen by Provider: 09/18/17 06:14 Notes: 72-year-old male to the emergency department chief complaint of abdominal pain, nausea, vomiting. Was recently admitted to the hospital and recently discharged. Continues to have intermittent nausea, vomiting, gastroparesis and abdominal pain. It is described as diffuse. Cannot seem to keep anything down. TRAVEL OUTSIDE OF THE [place] IN LAST 30 DAYS: No - HPI Patient complains to provider of: Abdominal pain, Vomiting Timing/Duration: Gradual, Constant Quality of pain: Achy Severity at maximum: Moderate Severity in ED: Moderate Pain Level: 3 - Related Data Allergies/Adverse Reactions: No Known Allergies Allergy (Verified 08/30/17 10:21) Past Medical History - General Information source: Patient - Social History Smoking Status: Never Smoker Cigarette use (# per day): No Frequency of alcohol use: None Drug Abuse: None Lives with: Family Family History: Reviewed & Not Pertinent Patient has suicidal ideation: No Patient has homicidal ideation: No - Past Medical History Cardiac Medical History: Reports: Hx Coronary Artery Disease, Hx Hypercholesterolemia, Hx Hypertension Denies: Hx Congestive Heart Failure, Hx DVT, Hx Heart Attack, Hx Pulmonary Embolism Pulmonary Medical History: Denies: Hx Asthma, Hx Bronchitis, Hx COPD, Hx Pneumonia, Hx Tuberculosis Neurological Medical History: Denies: Hx Cerebrovascular Accident, Hx Seizures Endocrine Medical History: Reports: Hx Diabetes Mellitus Type 1, Hx Diabetes Mellitus Type 2. Denies: Hx Hyperthyroidism, Hx Hypothyroidism Renal/ Medical History: Denies: Hx Peritoneal Dialysis GI Medical History: Denies: Hx Cirrhosis, Hx Gastroesophageal Reflux Disease, Hx Hepatitis Musculoskeltal Medical History: Reports Hx Arthritis Skin Medical History: Denies Hx Eczema, Denies Hx Psoriasis Psychiatric Medical History: Denies: Hx Depression Infectious Medical History: Denies: Hx Hepatitis Past Surgical History: Reports: Hx Abdominal Surgery - hernia x2, Hx Appendectomy, Hx Herniorrhaphy. Denies: Hx Pacemaker - Immunizations Hx Diphtheria, Pertussis, Tetanus Vaccination: Yes Review of Systems - Review of Systems Constitutional: No symptoms reported EENT: No symptoms reported Cardiovascular: No symptoms reported Respiratory: No symptoms reported Gastrointestinal: No symptoms reported, Abdominal pain, Nausea, Vomiting. denies: Diarrhea, Black stools, Rectal bleeding Genitourinary: No symptoms reported Male Genitourinary: No symptoms reported Musculoskeletal: No symptoms reported Skin: No symptoms reported Hematologic/Lymphatic: No symptoms reported Neurological/Psychological: No symptoms reported Physical Exam - Vital signs Vitals: Resp Pulse Ox 11 L 100 09/18/17 04:50 09/18/17 04:50 Interpretation: Normal - General General appearance: Appears well, Alert - HEENT Head: Normocephalic, Atraumatic Eyes: Normal Pupils: PERRL - Respiratory Respiratory status: No respiratory distress Chest status: Nontender Breath sounds: Normal Chest palpation: Normal - Cardiovascular Rhythm: Regular Heart sounds: Normal auscultation Murmur: No - Abdominal Inspection: Normal Distension: No distension Bowel sounds: Normal Tenderness: Nontender Organomegaly: No organomegaly - Back Back: Normal, Nontender - Extremities General upper extremity: Normal inspection, Nontender, Normal color, Normal ROM , Normal temperature General lower extremity: Normal inspection, Nontender, Normal color, Normal ROM , Normal temperature, Normal weight bearing. No: Rose's sign - Neurological Neuro grossly intact: Yes Cognition: Normal Orientation: AAOx4 Nichole Coma Scale Eye Opening: Spontaneous Nichole Coma Scale Verbal: Oriented Nichole Coma Scale Motor: Obeys Commands Nichole Coma Scale Total: 15 Speech: Normal Motor strength normal: LUE, RUE, LLE, RLE Sensory: Normal - Psychological Associated symptoms: Normal affect, Normal mood - Skin Skin Temperature: Warm Skin Moisture: Dry Skin Color: Normal Course - Re-evaluation Re-evalutation: 09/18/17 08:30 This is a 72-year-old male with multiple visits for abdominal pain nausea and vomiting. We will do basic labs, hydration, nausea control and reassessment. 09/18/17 10:30 Patient was recently admitted to the hospital for the same. I have reviewed these records. Had a CT scan at that time which showed some colitis. I have ordered a lactic acid. If this is elevated may repeat CT scan to look for mesenteric ischemia. Patient is resting comfortably at this time so unlikely this represents something severe. 09/18/17 13:18 Laboratory 09/18/17 09/18/17 09/18/17 06:25 06:25 06:25 WBC 9.5 RBC 5.17 Hgb 15.5 Hct 44.9 MCV 87 MCH 30.1 MCHC 34.6 RDW 13.5 Plt Count 177 Seg Neutrophils % 89.2 H Lymphocytes % 7.8 L Monocytes % 2.7 L Eosinophils % 0.1 Basophils % 0.2 Absolute Neutrophils 8.5 H Absolute Lymphocytes 0.7 Absolute Monocytes 0.3 Absolute Eosinophils 0.0 Absolute Basophils 0.0 Sodium 145.3 H Potassium 3.2 L Chloride 101 Carbon Dioxide 22 Anion Gap 22 H BUN 44 H Creatinine 1.42 H Est GFR ( Amer) 59 L Est GFR (Non-Af Amer) 49 L Glucose 194 H Lactic Acid Calcium 9.8 Total Bilirubin 1.4 H Direct Bilirubin 0.4 Neonat Total Bilirubin Not Reportable Neonat Direct Bilirubin Not Reportable Neonat Indirect Bili Not Reportable AST 49 ALT 67 Alkaline Phosphatase 72 Troponin I 0.049 Total Protein 8.4 H Albumin 5.0 Lipase 131.0 Urine Color Urine Appearance Urine pH Ur Specific [place] Urine Protein Urine Glucose (UA) Urine Ketones Urine Blood Urine Nitrite Urine Bilirubin Urine Urobilinogen Ur Leukocyte Esterase Urine WBC (Auto) Squamous Epi Cells Auto Urine Mucus (Auto) Urine Ascorbic Acid 09/18/17 09/18/17 09/18/17 10:55 11:39 11:39 WBC RBC Hgb Hct MCV MCH MCHC RDW Plt Count Seg Neutrophils % Lymphocytes % Monocytes % Eosinophils % Basophils % Absolute Neutrophils Absolute Lymphocytes Absolute Monocytes Absolute Eosinophils Absolute Basophils Sodium 143.5 Potassium 3.3 L Chloride 106 Carbon Dioxide 25 Anion Gap 13 BUN 39 H Creatinine 1.06 Est GFR ( Amer) > 60 Est GFR (Non-Af Amer) > 60 Glucose 152 H Lactic Acid 2.0 Calcium 8.1 L Total Bilirubin Direct Bilirubin Neonat Total Bilirubin Neonat Direct Bilirubin Neonat Indirect Bili AST ALT Alkaline Phosphatase Troponin I Total Protein Albumin Lipase Urine Color STRAW Urine Appearance CLEAR Urine pH 5.0 Ur Specific [place] 1.011 Urine Protein NEGATIVE Urine Glucose (UA) >=500 H Urine Ketones TRACE H Urine Blood NEGATIVE Urine Nitrite NEGATIVE Urine Bilirubin NEGATIVE Urine Urobilinogen NEGATIVE Ur Leukocyte Esterase NEGATIVE Urine WBC (Auto) 0 Squamous Epi Cells Auto <1 Urine Mucus (Auto) RARE Urine Ascorbic Acid NEGATIVE 09/18/17 11:39 WBC RBC Hgb Hct MCV MCH MCHC RDW Plt Count Seg Neutrophils % Lymphocytes % Monocytes % Eosinophils % Basophils % Absolute Neutrophils Absolute Lymphocytes Absolute Monocytes Absolute Eosinophils Absolute Basophils Sodium Potassium Chloride Carbon Dioxide Anion Gap BUN Creatinine Est GFR ( Amer) Est GFR (Non-Af Amer) Glucose Lactic Acid Calcium Total Bilirubin Direct Bilirubin Neonat Total Bilirubin Neonat Direct Bilirubin Neonat Indirect Bili AST ALT Alkaline Phosphatase Troponin I 0.060 Total Protein Albumin Lipase Urine Color Urine Appearance Urine pH Ur Specific [place] Urine Protein Urine Glucose (UA) Urine Ketones Urine Blood Urine Nitrite Urine Bilirubin Urine Urobilinogen Ur Leukocyte Esterase Urine WBC (Auto) Squamous Epi Cells Auto Urine Mucus (Auto) Urine Ascorbic Acid Patient is feeling a little bit better. Daughter is here and states that he has not taken his Cymbalta in several days. I am ordering that at this time. Troponin is slightly elevated. Will order aspirin. Have consulted hospitalist who agrees to admit at this time. - Vital Signs Vital signs: Temp Pulse Resp BP Pulse Ox 98.7 F 21 H 123/54 L 97 09/18/17 11:00 09/18/17 12:00 09/18/17 12:00 09/18/17 12:00 - Laboratory Result Diagrams: 09/18/17 06:25 09/18/17 11:39 Laboratory results interpreted by me: 09/18/17 09/18/17 09/18/17 06:25 06:25 10:55 Seg Neutrophils % 89.2 H Lymphocytes % 7.8 L Monocytes % 2.7 L Absolute Neutrophils 8.5 H Sodium 145.3 H Potassium 3.2 L Anion Gap 22 H BUN 44 H Creatinine 1.42 H Est GFR ( Amer) 59 L Est GFR (Non-Af Amer) 49 L Glucose 194 H Calcium Total Bilirubin 1.4 H Total Protein 8.4 H Urine Glucose (UA) >=500 H Urine Ketones TRACE H 09/18/17 11:39 Seg Neutrophils % Lymphocytes % Monocytes % Absolute Neutrophils Sodium Potassium 3.3 L Anion Gap BUN 39 H Creatinine Est GFR ( Amer) Est GFR (Non-Af Amer) Glucose 152 H Calcium 8.1 L Total Bilirubin Total Protein Urine Glucose (UA) Urine Ketones - EKG Interpretation by Me EKG shows normal: Merkel, Intervals Rate: Normal Merkel/QRS: RBBB When compared to previous EKG there are: No significant change Discharge - Discharge Clinical Impression: Intractable vomiting Qualifiers: Vomiting type: cyclical vomiting Nausea presence: unspecified Qualified Code(s) : G43.A1 - Cyclical vomiting, intractable Condition: Good Disposition: ADMITTED OBSERVATION Admitting Provider: Hospitalist - Dr. Burpee Unit Admitted: Telemetry Referrals: ROS,REAL, MD [Primary Care Provider] - Follow up as needed
[2017-09-18] MEDS ORDERED: METOCLOPRAMIDE HCL INJ/PF 10 MG/2 ML SDV IV ONE (06:45)
[2017-09-18] MEDS ORDERED: DIPHENHYDRAMINE HCL 50 MG/ML VIAL IV ONE (06:45)
[2017-09-18] MEDS ORDERED: NORMAL SALINE 1000 ML 1,000 ML IV ONE ×2 (06:46→08:38)
[2017-09-18 06:53] LABS: ALANINE AMINOTRANSFERASE 67 U/L (21-72); ALKALINE PHOSPHATASE 72 U/L (38-126); ASPARTATE AMINO TRANSFERASE 49 U/L (17-59); BILIRUBIN,DIRECT 0.4 mg/dL (0.0-0.4); BILIRUBIN,TOTAL 1.4 mg/dL (0.2-1.3); BLOOD UREA NITROGEN 44 mg/dL (7-20); CALCIUM 9.8 mg/dL (8.4-10.2); CARBON DIOXIDE 22 mmol/L (22-30); CHLORIDE 101 mmol/L (98-107); GLUCOSE 194 mg/dL (75-110); POTASSIUM 3.2 mmol/L (3.6-5.0); TOTAL PROTEIN 8.4 g/dL (6.3-8.2)
[2017-09-18 06:59] LABS: ANION GAP 22 (5-19); SODIUM 145.3 mmol/L (137-145)
--- NOTE | 2017-09-18 08:01 | EKG REPORT ---
SEVERITY:- ABNORMAL ECG - SINUS ARRHYTHMIA, RATE 54-94 PROBABLE LEFT ATRIAL ABNORMALITY RBBB AND LPFB : Confirmed by: Jose Iqbal MD 18-Sep-2017 08:00:00
[2017-09-18] MEDS ORDERED: MORPHINE SULFATE 10 MG/ML INJ IV ONE (08:47)
[2017-09-18 11:20] LABS: APPEARANCE,URINE CLEAR; BILIRUBIN,URINE NEGATIVE (NEGATIVE); COLOR,URINE STRAW; GLUCOSE, URINE >=500 mg/dL (NEGATIVE); KETONES,URINE TRACE mg/dL (NEGATIVE); LEUKOCYTE ESTERASE,URINE NEGATIVE (NEGATIVE); NITRITE,URINE NEGATIVE (NEGATIVE); PROTEIN,URINE NEGATIVE (NEGATIVE); URINE SPECIFIC GRAVITY 1.011; UROBILINOGEN,URINE NEGATIVE mg/dL (<2.0)
[2017-09-18 12:24] LABS: ANION GAP 13 (5-19); BLOOD UREA NITROGEN 39 mg/dL (7-20); CALCIUM 8.1 mg/dL (8.4-10.2); CARBON DIOXIDE 25 mmol/L (22-30); CHLORIDE 106 mmol/L (98-107); GLUCOSE 152 mg/dL (75-110); POTASSIUM 3.3 mmol/L (3.6-5.0); SODIUM 143.5 mmol/L (137-145)
[2017-09-18] MEDS ORDERED: DULOXETINE HCL 20 MG CAPSULE.DR PO ONE (13:13)
[2017-09-18] MEDS ORDERED: RINGERS SOLUTION,LACTATED 1,000 ML IV PRN (14:20)
[2017-09-18] MEDS ORDERED: ONDANSETRON HCL INJ/PF 4 MG/2 ML SDV IV PRN (14:20)
[2017-09-18] MEDS ORDERED: NITROGLYCERIN 0.4 MG/TAB 25 TAB/BOTTLE SL PRN (14:29)
[2017-09-18] MEDS ORDERED: (PENDING PHARMACY ID) (Tramadol Hcl/Acetaminophen [Ultracet 37.5 Mg/325 Mg Tablet] 1 EACH) PO PRN (14:29)
[2017-09-18] MEDS ORDERED: DEXTROSE 40% GEL 15 GM TUBE PO PRN ×2 (14:32)
[2017-09-18] MEDS ORDERED: DEXTROSE 50%-WATER 25 GM/50 ML DISP.SYRIN IV PRN ×2 (14:32)
[2017-09-18] MEDS ORDERED: GLUCAGON,HUMAN RECOMB 1 MG INJ IM PRN (14:32)
--- NOTE | 2017-09-18 15:01 | PDOC H&P ---
History of Present Illness Admission Date/PCP: 09/18/17 13:29 REAL KHALIL MD Patient complains of: Abdominal pain nausea and vomiting History of Present Illness: RICHARD RANDALL JR is a 72 year old male who has type 1 diabetes. He also has hyperlipidemia, hypertension, history of gastroparesis and DKA. He was recently admitted to this hospital with abdominal pain not entirely clear etiology. He was discharged several days ago. He states that upon discharge and getting back home he decided that he no longer wanted to take his Cymbalta for depression so he stopped it abruptly. Last night at about midnight he started to have nausea and vomiting. He took Zofran which did not help. Abdominal pain came on and was dull and achy. No radiation into the chest. No associated chest pain jaw pain arm pain. No fevers or chills. Secondary to persistent nausea vomiting and abdominal pain he called EMS and was brought into the ER. In the ER he has received fluids, morphine, Reglan. He is feeling better this morning. Abdominal pain is starting to return a little bit. He also has a troponin that is 0.06, 0.49 earlier today. Secondary to high risk for coronary artery disease with GI symptoms and elevated troponin along with returning abdominal pain he will be admitted to the hospitalist service for further management. Past Medical History Cardiac Medical History: Reports: Coronary Artery Disease, Hyperlipidema, Hypertension Denies: Congestive Heart Failure, DVT, Myocardial Infarction, Pulmonary Embolism Pulmonary Medical History: Denies: Asthma, Bronchitis, Chronic Obstructive Pulmonary Disease (COPD), Pneumonia, Tuberculosis Neurological Medical History: Denies: Seizures Endocrine Medical History: Reports: Diabetes Mellitus Type 1, Diabetes Mellitus Type 2, Other - History of DKA and gastroparesis. Denies: Hyperthyroidism, Hypothyroidism Malignancy Medical History: Reports: None GI Medical History: Denies: Cirrhosis, Gastroesophageal Reflux Disease, Hepatitis Musculoskeltal Medical History: Reports: Arthritis Skin Medical History: Denies: Eczema, Psoriasis Psychiatric Medical History: Denies: Depression, Tobacco Dependency Hematology: Denies: Anemia Infectious Medical History: Reports: None Past Surgical History Past Surgical History: Reports: Appendectomy, Herniorrhaphy, Other - Had a G- tube (?J tube) placed and has now been removed, site well healed Denies: Pacemaker Social History Information Source: Patient Lives with: Family Smoking Status: Never Smoker Frequency of Alcohol Use: Rare Hx Recreational Drug Use: No Drugs: None Hx Prescription Drug Abuse: No Past Social History Note: Patient works at the [employer] on the local [employer]. He is a [place] era . He also has spent time in [employer]. - Advance Directive Resuscitation Status: Full Code Surrogate healthcare decision maker:: His 2 daughters are surrogate decision makers Family History Family History: DM, Malignancy Parental Family History Reviewed: Yes - Multiple people on his mother's side of the family with cancer unknown type Children Family History Reviewed: Yes - Children are healthy he has 2 biologic children and 2 stepchildren Sibling(s) Family History Reviewed.: Yes - His sister has diabetes Medication/Allergy Home Medications: Amlodipine Besylate [Norvasc 10 mg Tablet] 10 mg PO DAILY 09/15/17 Aspirin [Aspirin EC] 81 mg PO DAILY 09/15/17 Atorvastatin Calcium [Lipitor 80 mg Tablet] 80 mg PO QHS 09/15/17 Duloxetine HCl [Cymbalta] 60 mg PO QHS 09/15/17 Ergocalciferol (Vitamin D2) [Vitamin D2] 50,000 unit PO ASDIR 09/15/17 Glimepiride [Amaryl 4 mg Tablet] 8 mg PO QHS 09/15/17 Hydrochlorothiazide [Hydrodiuril 25 mg Tablet] 25 mg PO QAM 09/15/17 Insulin Aspart [Novolog Insulin (Aspart) 100 unit/mL] 0 unit SUBCUT .SLD SCALE 09/15/17 Insulin Glargine,Hum.rec.anlog [Lantus Solostar] 10 unit SQ QAM 09/15/17 Insulin Glargine,Hum.rec.anlog [Lantus Solostar] 40 unit SQ QHS 09/15/17 Lorazepam [Ativan 0.5 mg Tablet] 0.5 mg PO Q4 PRN #15 tab 09/15/17 Metformin HCl [Metformin HCl ER] 2,000 mg PO WBRKFST 09/15/17 Metoprolol Succinate [Toprol Xl 25 mg Tab.sr] 25 mg PO DAILY 09/15/17 Nitroglycerin [Nitrostat 0.4 mg (1/150 Gr) Tabs 25/Bottle] 1 tab SL Q5MP PRN Tramadol HCl/Acetaminophen [Ultracet 37.5 mg/325 mg Tablet] 1 each PO TIDP PRN 09/15/17 Valsartan [Diovan] 320 mg PO DAILY 09/15/17 Ondansetron [Zofran Odt 4 mg Tablet] 1 - 2 tab PO Q4H PRN #20 tab.rapdis Allergies/Adverse Reactions: No Known Allergies Allergy (Verified 08/30/17 10:21) Review of Systems Constitutional: ABSENT: chills, fever(s), headache(s), night sweats, weakness Ears: ABSENT: hearing changes Nose, Mouth, and Throat: ABSENT: headache(s), mouth pain Cardiovascular: ABSENT: chest pain, dyspnea on exertion, orthropnea, palpitations Respiratory: ABSENT: cough, dyspnea, hemoptysis, sputum Gastrointestinal: PRESENT: abdominal pain, nausea - [id number], vomiting. ABSENT: coffee ground emesis, constipation, diarrhea, hematemesis, hematochezia, melena Genitourinary: ABSENT: hematuria Musculoskeletal: ABSENT: back pain, joint swelling, muscle weakness Integumentary: ABSENT: diaphoresis, erythema Neurological: ABSENT: abnormal speech, confusion, dizziness, focal weakness, frequent falls Psychiatric: ABSENT: anxiety, depression Endocrine: PRESENT: polyuria Hematologic/Lymphatic: ABSENT: easy bleeding, easy bruising Physical Exam Vital Signs: Temp Pulse Resp BP Pulse Ox 98.7 F 21 H 123/54 L 97 09/18/17 11:00 09/18/17 12:00 09/18/17 12:00 09/18/17 12:00 General appearance: PRESENT: no acute distress, cooperative, well-developed, well-nourished Head exam: PRESENT: atraumatic, normocephalic Eye exam: PRESENT: EOMI. ABSENT: conjunctival injection, scleral icterus Mouth exam: PRESENT: moist, tongue midline Neck exam: ABSENT: lymphadenopathy, tenderness Respiratory exam: PRESENT: clear to auscultation arnold, unlabored. ABSENT: rales , rhonchi, wheezes Cardiovascular exam: PRESENT: RRR. ABSENT: systolic murmur Pulses: PRESENT: normal radial pulses GI/Abdominal exam: PRESENT: hypoactive bowel sounds, soft. ABSENT: distended, firm, guarding, mass, tenderness Rectal exam: PRESENT: deferred Extremities exam: ABSENT: pedal edema Musculoskeletal exam: ABSENT: deformity Neurological exam: PRESENT: alert, awake, oriented to person, oriented to place , oriented to situation, CN II-XII grossly intact Psychiatric exam: PRESENT: appropriate affect. ABSENT: anxious Skin exam: PRESENT: dry, intact, normal color, warm. ABSENT: pallor Assessment & Plan - Diagnosis (1) Elevated troponin Is this a current diagnosis for this admission?: Yes Plan: Patient has the coronary disease equivalent of diabetes. He is treated for hyperlipidemia. He is very high risk risk for acute coronary syndrome. Troponin has very slight elevation and third 1 is pending. For now he will be kept n.p.o. He will receive an aspirin. He is chest pain-free and his symptoms , abdominal pain nausea, are under fairly good control. Is being admitted to the hospitalist service on telemetry. We will watch him closely for possibility of a developing acute coronary syndrome, will consult interactive media marketing specialist if indicated, will transfer if indicated. (2) Nausea and vomiting Is this a current diagnosis for this admission?: Yes Plan: Could potentially be related to cardiac disease. Could also be related to abrupt Cymbalta withdrawal. Could also be related to diabetic gastroparesis. For now he feels pretty good but the abdominal pain seems to be returning. Will monitor closely and treat as indicated. We have restarted his Cymbalta. Please see above for plan for possible acute coronary syndrome. Is n.p.o. for now (3) Type 1 diabetes Is this a current diagnosis for this admission?: Yes Plan: Patient has had severe gastroparesis in the past to the point where he had a feeding tube placed. It is now been removed. He takes twice daily Lantus and he is on sliding scale short acting insulin. I started his Lantus but will monitor that closely if he remains n.p.o. He is also on short acting bolus insulin with every 6 hours CBGs. He will start a diabetic diet when that is safe. (4) Gastroparesis due to DM Is this a current diagnosis for this admission?: Yes Plan: Please see above. (5) Hypertensive emergency without congestive heart failure Is this a current diagnosis for this admission?: Yes Plan: Hypertension has improved to normal. I will restart his cardiac meds eluding antihypertensives.. (6) Upper abdominal pain Is this a current diagnosis for this admission?: Yes Plan: Could be related to gastroparesis, gastroenteritis, cardiac disease. Workup in process. Monitoring closely. No evidence of bleeding. (7) Vomiting Qualifiers: Vomiting type: unspecified Vomiting Intractability: non-intractable Nausea presence: with nausea Qualified Code(s): R11.2 - Nausea with vomiting, unspecified Is this a current diagnosis for this admission?: Yes Plan: Could be related to diabetic gastroparesis, gastroenteritis, cardiac disease. Monitoring closely. Cardiac disease being evaluated. Diabetic meds have been started. Zofran as needed has been ordered. He is n.p.o. for now until we know more about his troponin elevation. - Time Time Spent: Greater than 70 Minutes Medications reviewed and adjusted accordingly: Yes - Inpatient Certification Based on my medical assessment, after consideration of the patient's comorbidities, presenting symptoms, or acuity I expect that the services needed warrant INPATIENT care.: Yes I certify that my determination is in accordance with my understanding of Medicare's requirements for reasonable and necessary INPATIENT services [42 CFR 412.3e].: Yes Medical Necessity: Significant Comorbidiites Make Outpatient Treatment Too Risky , Need Close Monitoring Due to Risk of Patient Decompensation, Risk of Complication if Not Cared For in Hospital
[2017-09-18 15:48] LABS: CREATINE KINASE MB 2.28 ng/mL (<4.55); TROPONIN I 0.053 ng/mL
[2017-09-18 15:57] LABS: URINE AMPHETAMINES SCREEN NEGATIVE; URINE BARBITURATES SCREEN NEGATIVE; URINE BENZODIAZEPINES SCREEN NEGATIVE; URINE COCAINE SCREEN NEGATIVE; URINE MARIJUANA (THC) SCREEN NEGATIVE; URINE METHADONE SCREEN NEGATIVE; URINE PHENCYCLIDINE SCREEN NEGATIVE
[2017-09-18] MEDS ORDERED: NORMAL SALINE 1000 ML 1,000 ML IV PRN (17:44)
[2017-09-18] MEDS: LORAZEPAM 0.5 MG TABLET PO PRN ×2 (20:09→21:41)
[2017-09-18] MEDS ORDERED: DICYCLOMINE HCL 20 MG TABLET PO PRN (21:27)
[2017-09-18] MEDS: INSULIN GLARGINE,HUM.REC.ANLOG 300 UNIT/3 ML INSULN.PEN SUBCUT SCH (21:40)
[2017-09-18] MEDS: INSULIN LISPRO 100 UNIT/ML 3 ML VIAL SUBCUT PRN (21:40)
[2017-09-18] MEDS: ATORVASTATIN CALCIUM 80 MG TABLET PO SCH (21:40)
[2017-09-18] MEDS: DULOXETINE HCL 30 MG CAPSULE.DR PO SCH (21:41)
[2017-09-18] MEDS: HEPARIN SOD (PORCINE) 5,000 UNIT/ML 1 ML SYRINGE SUBCUT SCH (21:45)
[2017-09-18] MEDS ORDERED: DIAZEPAM INJ 10 MG/2 ML DISP.SYRIN IV ONE (22:15)
[2017-09-19] MEDS: LORAZEPAM 0.5 MG TABLET PO PRN ×6 (02:23→22:15)
[2017-09-19 05:49] LABS: HEMATOCRIT 38.9 % (37.9-51.0); HEMOGLOBIN 13.6 g/dL (13.5-17.0); MEAN CORPUSCULAR HEMOGLOBIN 30.3 pg (27.0-33.4); MEAN CORPUSCULAR VOLUME 87 fl (80-97); PLATELET COUNT 149 10^3/uL (150-450); RED BLOOD COUNT 4.49 10^6/uL (4.35-5.55); RED CELL DISTRIBUTION WIDTH 13.4 % (11.5-14.0); WHITE BLOOD COUNT 6.2 10^3/uL (4.0-10.5)
[2017-09-19 06:09] LABS: ANION GAP 11 (5-19); BLOOD UREA NITROGEN 30 mg/dL (7-20); CALCIUM 8.6 mg/dL (8.4-10.2); CARBON DIOXIDE 28 mmol/L (22-30); CHLORIDE 103 mmol/L (98-107); CHOLESTEROL 131.85 mg/dL (0-200); GLUCOSE 147 mg/dL (75-110); POTASSIUM 3.2 mmol/L (3.6-5.0); SODIUM 141.7 mmol/L (137-145); TRIGLYCERIDES 129 mg/dL (<150)
[2017-09-19 06:19] LABS: DIRECT LDL 75 mg/dL (<100)
[2017-09-19] MEDS: HEPARIN SOD (PORCINE) 5,000 UNIT/ML 1 ML SYRINGE SUBCUT SCH ×3 (06:25→22:03)
[2017-09-19] MEDS ORDERED: (PENDING PHARMACY ID) (Valsartan [Diovan] 320 MG) PO SCH (10:00)
[2017-09-19] MEDS: POTASSIUM CHLORIDE 10 MEQ TABLET.SA PO SCH ×2 (10:36→14:37)
[2017-09-19] MEDS: HYDROCHLOROTHIAZIDE 25 MG TABLET PO SCH (10:36)
[2017-09-19] MEDS: ASPIRIN 81 MG TABLET, ENT COATED PO SCH (10:36)
[2017-09-19] MEDS: VALSARTAN 160 MG TABLET PO SCH (10:36)
[2017-09-19] MEDS: METOPROLOL SUCCINATE 25 MG TAB.SR.24H PO SCH (10:37)
[2017-09-19] MEDS: INSULIN GLARGINE,HUM.REC.ANLOG 300 UNIT/3 ML INSULN.PEN SUBCUT SCH ×2 (11:39→22:26)
[2017-09-19] MEDS: INSULIN LISPRO 100 UNIT/ML 3 ML VIAL SUBCUT PRN (16:51)
--- NOTE | 2017-09-19 18:41 | PDOC PROGRESS REPORT ---
Subjective Progress Note for:: 09/19/17 Subjective:: She feels better today. He was starting to have some abdominal pain and nausea last night and the night hospitalist gave him a dose of Valium which calmed him down quite a bit. He slept well. He woke up this morning and he had no abdominal pain. We talked about using his Ativan that is prescribed as needed for nausea because it seems to help, we also discussed that his nausea could be related to anxiety. Also restarted his Cymbalta now and it could be helping as well. Reason For Visit: ELEVATED TROPONIN,ABD PAIN,NAUSEA AND EMESIS Physical Exam Vital Signs: Temp Pulse Resp BP Pulse Ox 97.6 F 62 16 123/55 L 99 09/19/17 16:00 09/19/17 16:00 09/19/17 16:00 09/19/17 16:00 09/19/17 16:00 Intake & Output 09/18/17 09/19/17 09/20/17 06:59 06:59 06:59 Output Total 550 Balance -550 Weight 79.4 kg General appearance: PRESENT: no acute distress, well-developed, well-nourished Head exam: PRESENT: atraumatic, normocephalic Eye exam: PRESENT: EOMI. ABSENT: conjunctival injection, scleral icterus Ear exam: PRESENT: normal external ear exam Mouth exam: PRESENT: moist Respiratory exam: PRESENT: clear to auscultation arnold, unlabored. ABSENT: rales , rhonchi, wheezes Cardiovascular exam: PRESENT: RRR. ABSENT: systolic murmur Pulses: PRESENT: normal radial pulses GI/Abdominal exam: PRESENT: normal bowel sounds, soft. ABSENT: distended, firm , tenderness Neurological exam: PRESENT: alert, awake, oriented to person, oriented to place , oriented to situation, CN II-XII grossly intact Psychiatric exam: PRESENT: appropriate affect. ABSENT: anxious Skin exam: PRESENT: dry, intact, warm Results Laboratory Results: 09/19/17 05:07 09/19/17 05:07 09/19/17 09/19/17 05:07 05:07 WBC 6.2 RBC 4.49 Hgb 13.6 Hct 38.9 MCV 87 MCH 30.3 MCHC 35.0 RDW 13.4 Plt Count 149 L Sodium 141.7 Potassium 3.2 L Chloride 103 Carbon Dioxide 28 Anion Gap 11 BUN 30 H Creatinine 0.78 Est GFR ( Amer) > 60 Est GFR (Non-Af Amer) > 60 Glucose 147 H Calcium 8.6 Triglycerides 129 Cholesterol 131.85 LDL Cholesterol Direct 75 VLDL Cholesterol 26.0 HDL Cholesterol 38 L 09/18/17 09/18/17 15:00 15:00 Creatine Kinase 251 H CK-MB (CK-2) 2.28 Troponin I 0.053 Assessment & Plan - Diagnosis (1) Elevated troponin Is this a current diagnosis for this admission?: Yes Plan: trended down, not a concern at this time. (2) Nausea and vomiting Is this a current diagnosis for this admission?: Yes Plan: Overall better. It seems that with restarting Cymbalta his pain has improved so this could have been some kind of a withdrawal syndrome. Also his abdominal pain is improved with benzodiazepines both during this hospitalization and the last. Finally he does have this gastroparesis so that is probably playing a role as well. We will continue to monitor reevaluate tomorrow. (3) Type 1 diabetes Is this a current diagnosis for this admission?: Yes Plan: B blood sugars reasonably controlled, continue current plan consists of his home meds (4) Gastroparesis due to DM Is this a current diagnosis for this admission?: Yes Plan: Continue current care (5) Hypertensive emergency without congestive heart failure Is this a current diagnosis for this admission?: Yes Plan: Resolved (6) Vomiting Qualifiers: Vomiting type: unspecified Vomiting Intractability: non-intractable Nausea presence: with nausea Qualified Code(s): R11.2 - Nausea with vomiting, unspecified Is this a current diagnosis for this admission?: Yes Plan: Resolved. Monitor, continue as needed Zofran - Time Time Spent with patient: 25-34 minutes Medications reviewed and adjusted accordingly: Yes - Inpatient Certification Based on my medical assessment, after consideration of the patient's comorbidities, presenting symptoms, or acuity I expect that the services needed warrant INPATIENT care.: Yes I certify that my determination is in accordance with my understanding of Medicare's requirements for reasonable and necessary INPATIENT services [42 CFR 412.3e].: Yes Medical Necessity: Risk of Complication if Not Cared For in Hospital
[2017-09-19] MEDS: DULOXETINE HCL 30 MG CAPSULE.DR PO SCH (22:15)
[2017-09-19] MEDS: ATORVASTATIN CALCIUM 80 MG TABLET PO SCH (22:15)
[2017-09-20] MEDS: LORAZEPAM 0.5 MG TABLET PO PRN ×4 (01:15→15:16)
[2017-09-20] MEDS: HEPARIN SOD (PORCINE) 5,000 UNIT/ML 1 ML SYRINGE SUBCUT SCH ×3 (05:11→22:40)
[2017-09-20] MEDS: INSULIN GLARGINE,HUM.REC.ANLOG 300 UNIT/3 ML INSULN.PEN SUBCUT SCH ×2 (08:21→22:40)
[2017-09-20] MEDS: HYDROCHLOROTHIAZIDE 25 MG TABLET PO SCH (08:21)
[2017-09-20] MEDS: METOPROLOL SUCCINATE 25 MG TAB.SR.24H PO SCH (10:58)
[2017-09-20] MEDS: VALSARTAN 160 MG TABLET PO SCH (10:59)
[2017-09-20] MEDS: ASPIRIN 81 MG TABLET, ENT COATED PO SCH (10:59)
[2017-09-20] MEDS: INSULIN LISPRO 100 UNIT/ML 3 ML VIAL SUBCUT PRN ×2 (12:21→18:46)
[2017-09-20] MEDS ORDERED: LORAZEPAM 0.5 MG TABLET PO PRN (16:30)
--- NOTE | 2017-09-20 20:29 | PDOC PROGRESS REPORT ---
Subjective Progress Note for:: 09/20/17 Subjective:: Doing better, nausea and vomiting improved. Tolerating oral intake. Still on IV fluids. No fever or chills, no chest pain or shortness of breath or palpitations. Reason For Visit: ELEVATED TROPONIN,ABD PAIN,NAUSEA AND EMESIS Physical Exam Vital Signs: Temp Pulse Resp BP Pulse Ox 97.8 F 70 18 157/61 H 99 09/20/17 16:00 09/20/17 16:00 09/20/17 16:00 09/20/17 16:00 09/20/17 16:00 Intake & Output 09/19/17 09/20/17 09/21/17 06:59 06:59 06:59 Intake Total 1560 1290 Output Total 428 117 2218 Balance -550 1260 -160 Weight 79.4 kg 79.4 kg GEN: NAD, well-developed, well-nourished CV: RRR, NL S1S2 LUNGS: CTA bilaterally ABDOMEN Soft, NT, +BS EXTERMITIES: No e/c/c NEURO: Alert, oriented 3, nonfocal Results Laboratory Results: 09/19/17 05:07 09/19/17 05:07 09/18/17 09/18/17 15:00 15:00 Creatine Kinase 251 H CK-MB (CK-2) 2.28 Troponin I 0.053 Assessment & Plan - Plan Summary Plan Summary: (1) Elevated troponin Is this a current diagnosis for this admission?: Yes Plan: trended down, not a concern at this time. (2) Nausea and vomiting Is this a current diagnosis for this admission?: Yes Plan: Overall better. It seems that with restarting Cymbalta his pain has improved so this could have been some kind of a withdrawal syndrome. -Discontinue IV fluid, also discontinue abdomen -Monitor patient, possible discharge home in a.m. if remains stable (3) Type 1 diabetes Is this a current diagnosis for this admission?: Yes Plan: Bblood sugars reasonably controlled, continue current plan consists of his home meds (4) Gastroparesis due to DM Is this a current diagnosis for this admission?: Yes Plan: Continue current care (5) Hypertensive emergency without congestive heart failure Is this a current diagnosis for this admission?: Yes Plan: Resolved (6) Vomiting Qualifiers: Vomiting type: unspecified Vomiting Intractability: non-intractable Nausea presence: with nausea Qualified Code(s): R11.2 - Nausea with vomiting, unspecified Is this a current diagnosis for this admission?: Yes Plan: Resolved. Monitor, continue as needed Zofran
[2017-09-20] MEDS: DULOXETINE HCL 30 MG CAPSULE.DR PO SCH (22:39)
[2017-09-20] MEDS: ATORVASTATIN CALCIUM 80 MG TABLET PO SCH (22:39)
[2017-09-21] MEDS: HEPARIN SOD (PORCINE) 5,000 UNIT/ML 1 ML SYRINGE SUBCUT SCH ×2 (05:45→13:57)
[2017-09-21 07:02] LABS: ABSOLUTE BASOPHILS # (AUTO) 0.1 10^3/uL (0.0-0.2); ABSOLUTE EOSINOPHILS # (AUTO) 0.1 10^3/uL (0.0-0.6); ABSOLUTE LYMPHOCYTES (AUTO) 1.5 10^3/uL (0.5-4.7); ABSOLUTE MONOCYTES (AUTO) 0.4 10^3/uL (0.1-1.4); ABSOLUTE NEUT (AUTO) 2.4 10^3/uL (1.7-8.2); BASOPHILS % (AUTO) 1.2 % (0-2); EOSINOPHILS % (AUTO) 3.3 % (0-6); HEMATOCRIT 37.1 % (37.9-51.0); HEMOGLOBIN 12.9 g/dL (13.5-17.0); LYMPHOCYTES % (AUTO) 32.8 % (13-45); MEAN CORPUSCULAR HEMOGLOBIN 30.2 pg (27.0-33.4); MEAN CORPUSCULAR HGB CONC 34.7 g/dL (32.0-36.0); MEAN CORPUSCULAR VOLUME 87 fl (80-97); MONOCYTES % (AUTO) 8.6 % (3-13); PLATELET COUNT 131 10^3/uL (150-450); RED BLOOD COUNT 4.26 10^6/uL (4.35-5.55); RED CELL DISTRIBUTION WIDTH 13.3 % (11.5-14.0); SEGMENTED NEUTROPHILS % (AUTO) 54.1 % (42-78); TOTAL CELLS COUNTED % (AUTO) 100 %; WHITE BLOOD COUNT 4.5 10^3/uL (4.0-10.5)
[2017-09-21 07:21] LABS: ANION GAP 9 (5-19); BLOOD UREA NITROGEN 26 mg/dL (7-20); CALCIUM 8.9 mg/dL (8.4-10.2); CARBON DIOXIDE 29 mmol/L (22-30); CHLORIDE 103 mmol/L (98-107); GLUCOSE 136 mg/dL (75-110); POTASSIUM 3.5 mmol/L (3.6-5.0); SODIUM 140.8 mmol/L (137-145)
[2017-09-21] MEDS ORDERED: POTASSIUM CHLORIDE 10 MEQ TABLET.SA PO ONE (09:00)
[2017-09-21] MEDS ORDERED: ACETAMINOPHEN 325 MG TABLET ONE (09:20)
[2017-09-21] MEDS: INSULIN GLARGINE,HUM.REC.ANLOG 300 UNIT/3 ML INSULN.PEN SUBCUT SCH (09:20)
[2017-09-21] MEDS: HYDROCHLOROTHIAZIDE 25 MG TABLET PO SCH (09:22)
[2017-09-21] MEDS: ASPIRIN 81 MG TABLET, ENT COATED PO SCH (10:20)
[2017-09-21] MEDS: VALSARTAN 160 MG TABLET PO SCH (10:21)
[2017-09-21] MEDS: METOPROLOL SUCCINATE 25 MG TAB.SR.24H PO SCH (10:21)
--- NOTE | 2017-09-21 11:22 | PDOC DISCHARGE SUMMARY ---
General - Admit/Disc Date/PCP Admission Date/Primary Care Provider: 09/18/17 14:21 REAL KHALIL MD Discharge Date: 09/21/17 - Discharge Diagnosis (1) Nausea and vomiting Is this a current diagnosis for this admission?: Yes (2) Type 1 diabetes Is this a current diagnosis for this admission?: Yes (3) Gastroparesis due to DM Is this a current diagnosis for this admission?: Yes - Additional Information Resuscitation Status: Full Code Prescriptions: Duloxetine HCl [Cymbalta] 60 mg PO QHS 30 Days #30 capsule.dr MORRIS TAPERING OFF Home Medications: Aspirin [Aspirin EC] 81 mg PO DAILY 09/15/17 Atorvastatin Calcium [Lipitor 80 mg Tablet] 80 mg PO QHS 09/15/17 Duloxetine HCl [Cymbalta] 60 mg PO QHS MDD TAPERING OFF 09/15/17 Insulin Aspart [Novolog Insulin (Aspart) 100 unit/mL] 0 unit SUBCUT .SLD SCALE 09/15/17 Insulin Glargine,Hum.rec.anlog [Lantus Solostar] 10 unit SQ QAM 09/15/17 Insulin Glargine,Hum.rec.anlog [Lantus Solostar] 40 unit SQ QHS 09/15/17 Metformin HCl [Metformin HCl ER] 2,000 mg PO [id number] 09/15/17 Nitroglycerin [Nitrostat 0.4 mg (1/150 Gr) Tabs 25/Bottle] 1 tab SL Q5MP PRN Tramadol HCl/Acetaminophen [Ultracet 37.5 mg/325 mg Tablet] 1 each PO Q8HP PRN 09/15/17 Valsartan [Diovan] 320 mg PO DAILY 09/15/17 Empagliflozin [Jardiance] 25 mg PO DAILY 09/18/17 Tamsulosin HCl [Flomax 0.4 mg Cap.sr] 0.4 mg PO DAILY 09/18/17 Duloxetine HCl [Cymbalta] 60 mg PO QHS 30 Days #30 capsule.dr MORRIS TAPERING OFF 09/21/17 History of Present Illness History of Present Illness: RICHARD RANDALL JR is a 72 year old male who has type 1 diabetes. He also has hyperlipidemia, hypertension, history of gastroparesis and DKA. He was recently admitted to this hospital with abdominal pain not entirely clear etiology. He was discharged several days ago. He stated that upon discharge and getting back home he decided that he no longer wanted to take his Cymbalta for depression so he stopped it abruptly. On the day prior to current presentation at about midnight he started to have nausea and vomiting. He took Zofran which did not help. Abdominal pain came on and was dull and achy. He called EMS and was brought into the ER where has received fluids, morphine, Reglan and admitted to hospitalist service observation. Hospital Course Hospital Course: He was admitted to hospitalist service observation. He was continued on antiemetics and IV fluid. There was concern that he may be withdrawing from Cymbalta since he stopped taking it and this was restarted. He was also on metformin 2 g daily and this was held. Patient also received Ativan as needed for possible anxiety component. He is doing much better now, diet was advanced to clear liquid diet and then regular and he is tolerating. Ativan was discontinued and he is doing well. He feels better and is being discharged home in stable condition. We will discontinue his metformin as this may be contributory to his n/v and abd symptoms. He is to continue his insulin regimen , including Lantus. He is also given a prescription for his Cymbalta. He is to follow-up with his primary care physician within 1 week, sooner as needed. His potassium today is 3.5 and he was treated with KCl 40 M EQ p.o. 1. Physical Exam Vital Signs: Temp Pulse Resp BP Pulse Ox 98.2 F 59 L 12 159/69 H 98 09/21/17 07:42 09/21/17 07:42 09/21/17 07:42 09/21/17 07:42 09/21/17 07:42 Intake & Output 09/20/17 09/21/17 09/22/17 06:59 06:59 06:59 Intake Total 1560 1752 Output Total 300 2400 Balance 1260 -648 Weight 79.4 kg 77.7 kg GEN: NAD, well-developed, well-nourished CV: RRR, NL S1S2 LUNGS: CTA bilaterally ABDOMEN Soft, NT, +BS EXTERMITIES: No e/c/c NEURO: Alert, oriented 3, nonfocal Results Laboratory Results: 09/21/17 05:59 09/21/17 05:59 09/21/17 09/21/17 05:59 05:59 WBC 4.5 RBC 4.26 L Hgb 12.9 L Hct 37.1 L MCV 87 MCH 30.2 MCHC 34.7 RDW 13.3 Plt Count 131 L Seg Neutrophils % 54.1 Lymphocytes % 32.8 Monocytes % 8.6 Eosinophils % 3.3 Basophils % 1.2 Absolute Neutrophils 2.4 Absolute Lymphocytes 1.5 Absolute Monocytes 0.4 Absolute Eosinophils 0.1 Absolute Basophils 0.1 Sodium 140.8 Potassium 3.5 L Chloride 103 Carbon Dioxide 29 Anion Gap 9 BUN 26 H Creatinine 0.89 Est GFR ( Amer) > 60 Est GFR (Non-Af Amer) > 60 Glucose 136 H Calcium 8.9 09/18/17 09/18/17 15:00 15:00 Creatine Kinase 251 H CK-MB (CK-2) 2.28 Troponin I 0.053 Qualifiers - * PATIENT BEING DISCHARGED WITH ANY OF THE FOLLOWING DIAGNOSIS: No
[2017-09-21 16:36] VITALS: BP 157/61
== END 2017-09-21 17:00 | disposition home or self-care (01) | DRG 897 ==
LOC: ER 04:45 → EH 13:29 → OBSVTOIN 14:21 → 5 18:45
PROVIDERS: ADMIT Internal Medicine; ATTEND Internal Medicine
DX: F19.939 Other psychoactive substance use, unspecified with withdrawal, unspecified (principal); I16.1 Hypertensive emergency; R11.2 Nausea with vomiting, unspecified; R74.8 Abnormal levels of other serum enzymes; E10.43 Type 1 diabetes mellitus with diabetic autonomic (poly)neuropathy; K31.84 Gastroparesis; I25.10 Atherosclerotic heart disease of native coronary artery without angina pectoris; R10.9 Unspecified abdominal pain; T43.216A Underdosing of selective serotonin and norepinephrine reuptake inhibitors, initial encounter; I10 Essential (primary) hypertension; M19.90 Unspecified osteoarthritis, unspecified site; Z90.49 Acquired absence of other specified parts of digestive tract; Z91.128 Patient's intentional underdosing of medication regimen for other reason; Z79.4 Long term (current) use of insulin; Z79.82 Long term (current) use of aspirin
CPT/HCPCS: 36415; 80048; 80053; 80061; 80307; 81001; 82550; 82553; 82962; 83036; 83605; 83690; 84443; 84484; 85025; 85027; 93005; 93010; 96361; 96374; 96375; 99285; J1200; J1644; J1815; J2270; J2405; J2765; J3360; J3490; J7030; J7120

== ENCOUNTER 2017-09-29 13:34 | Emergency (ER) | payer BC, MEDICARE, OTHER ==
[2017-09-29] MEDS ORDERED: ASPIRIN 325 MG TABLET PO ONE (14:48)
--- NOTE | 2017-09-29 14:52 | ER Document Report ---
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 Upon arrival to the ER, the pain has eased up. PE: NAD. Strong distal pulses. Lungs CTAB. I have greeted and performed a rapid initial assessment of this patient. A comprehensive ED assessment and evaluation of the patient, analysis of test results and completion of the medical decision making process will be conducted by additional ED providers. TRAVEL OUTSIDE OF THE [place] IN LAST 30 DAYS: No - Related Data Allergies/Adverse Reactions: No Known Allergies Allergy (Verified 09/29/17 14:39) Past Medical History - Social History Chew tobacco use (# tins/day): No Frequency of alcohol use: None Drug Abuse: None - Past Medical History Cardiac Medical History: Reports: Hx Coronary Artery Disease, Hx Hypercholesterolemia, Hx Hypertension Denies: Hx Congestive Heart Failure, Hx DVT, Hx Heart Attack, Hx Pulmonary Embolism Pulmonary Medical History: Denies: Hx Asthma, Hx Bronchitis, Hx COPD, Hx Pneumonia, Hx Tuberculosis Neurological Medical History: Denies: Hx Cerebrovascular Accident, Hx Seizures Endocrine Medical History: Reports: Hx Diabetes Mellitus Type 1, Hx Diabetes Mellitus Type 2. Denies: Hx Hyperthyroidism, Hx Hypothyroidism Renal/ Medical History: Denies: Hx Peritoneal Dialysis GI Medical History: Denies: Hx Cirrhosis, Hx Gastroesophageal Reflux Disease, Hx Hepatitis Musculoskeltal Medical History: Reports Hx Arthritis Skin Medical History: Denies Hx Eczema, Denies Hx Psoriasis Psychiatric Medical History: Denies: Hx Depression Infectious Medical History: Denies: Hx Hepatitis Past Surgical History: Reports: Hx Abdominal Surgery - hernia x2, Hx Appendectomy, Hx Herniorrhaphy, Other - Had a G-tube (?J tube) placed and has now been removed, site well healed. Denies: Hx Pacemaker - Immunizations Hx Diphtheria, Pertussis, Tetanus Vaccination: Yes History of Influenza Vaccine for 02/2017 - 07/2017 Season: No Physical Exam - Vital signs Vitals: Temp Pulse Resp BP Pulse Ox 98.4 F 66 16 170/66 H 98 09/29/17 13:45 09/29/17 13:45 09/29/17 13:45 09/29/17 13:45 09/29/17 13:45 Course - Vital Signs Vital signs: Temp Pulse Resp BP Pulse Ox 98.4 F 66 16 170/66 H 98 09/29/17 13:45 09/29/17 13:45 09/29/17 13:45 09/29/17 13:45 09/29/17 13:45 Doctor's Discharge - Discharge Referrals: REAL KHALIL MD [Primary Care Provider] - Follow up as needed
[2017-09-29 15:26] LABS: ABSOLUTE BASOPHILS # (AUTO) 0.1 10^3/uL (0.0-0.2); ABSOLUTE EOSINOPHILS # (AUTO) 0.1 10^3/uL (0.0-0.6); ABSOLUTE MONOCYTES (AUTO) 0.4 10^3/uL (0.1-1.4); ABSOLUTE NEUT (AUTO) 4.2 10^3/uL (1.7-8.2); BASOPHILS % (AUTO) 1.5 % (0-2); EOSINOPHILS % (AUTO) 2.2 % (0-6); HEMATOCRIT 38.7 % (37.9-51.0); HEMOGLOBIN 13.2 g/dL (13.5-17.0); LYMPHOCYTES % (AUTO) 17.6 % (13-45); MEAN CORPUSCULAR HGB CONC 34.1 g/dL (32.0-36.0); MEAN CORPUSCULAR VOLUME 88 fl (80-97); MONOCYTES % (AUTO) 6.8 % (3-13); PLATELET COUNT 181 10^3/uL (150-450); RED BLOOD COUNT 4.39 10^6/uL (4.35-5.55); RED CELL DISTRIBUTION WIDTH 14.1 % (11.5-14.0); SEGMENTED NEUTROPHILS % (AUTO) 71.9 % (42-78); TOTAL CELLS COUNTED % (AUTO) 100 %; WHITE BLOOD COUNT 5.9 10^3/uL (4.0-10.5)
--- NOTE | 2017-09-29 15:34 | RADIOLOGY REPORT (SQ) ---
EXAM DESCRIPTION: CHEST 2 VIEWS COMPLETED DATE/TIME: 09/29/2017 3:21 pm REASON FOR STUDY: chest pain COMPARISON: February 2016 EXAM PARAMETERS: NUMBER OF VIEWS: two views TECHNIQUE: Digital Frontal and Lateral radiographic views of the chest acquired. RADIATION DOSE: NA LIMITATIONS: none FINDINGS: LUNGS AND PLEURA: No opacities, masses or pneumothorax. No pleural effusion. MEDIASTINUM AND HILAR STRUCTURES: No masses or contour abnormalities. HEART AND VASCULAR STRUCTURES: Heart normal size. No evidence for failure. BONES: No acute findings. HARDWARE: None in the chest. OTHER: No other significant finding. IMPRESSION: NO ACUTE RADIOGRAPHIC FINDING IN THE CHEST. TECHNICAL DOCUMENTATION: JOB ID: [id number] [employer]- All Rights Reserved Reading location - IP/workstation name: [email or web address]
[2017-09-29 15:49] LABS: ALANINE AMINOTRANSFERASE 46 U/L (21-72); ALBUMIN 4.3 g/dL (3.5-5.0); ALKALINE PHOSPHATASE 75 U/L (38-126); ANION GAP 14 (5-19); ASPARTATE AMINO TRANSFERASE 22 U/L (17-59); BILIRUBIN,DIRECT 0.2 mg/dL (0.0-0.4); BILIRUBIN,TOTAL 0.4 mg/dL (0.2-1.3); BLOOD UREA NITROGEN 17 mg/dL (7-20); CALCIUM 9.7 mg/dL (8.4-10.2); CARBON DIOXIDE 29 mmol/L (22-30); CHLORIDE 105 mmol/L (98-107); CREATINE KINASE 138 U/L (55-170); GLUCOSE 117 mg/dL (75-110); POTASSIUM 4.2 mmol/L (3.6-5.0); SODIUM 147.6 mmol/L (137-145)
[2017-09-29] MEDS ORDERED: MAG HYDROX/AL HYDROX/SIMETH SUSP 30 ML UDCUP PO ONE (18:01)
[2017-09-29] MEDS ORDERED: LIDOCAINE 2% VISCOUS SOLN 20 ML UDCUP PO ONE (18:01)
[2017-09-29] MEDS ORDERED: METOCLOPRAMIDE HCL ORAL SOLN 10 MG/10 ML UDCUP PO ONE (18:01)
--- NOTE | 2017-09-29 19:25 | EKG REPORT ---
SEVERITY:- ABNORMAL ECG - SINUS RHYTHM PROBABLE LEFT ATRIAL ABNORMALITY RIGHT BUNDLE BRANCH BLOCK : Confirmed by: Jose Iqbal MD 29-Sep-2017 19:24:04
--- NOTE | 2017-09-29 19:28 | ER Document Report ---
ED General - General Chief Complaint: Chest Pain Stated Complaint: CHEST PAIN Time Seen by Provider: 09/29/17 14:47 TRAVEL OUTSIDE OF THE [place] IN LAST 30 DAYS: No - HPI Patient complains to provider of: Chest pain Notes: Patient coming in for chest pain left sided burning starting around noon today. Patient denies any exacerbating or relieving factors. Patient was recently admitted for chest pain also has a history of diabetes gastroparesis acid reflux. Patient denies any nausea vomiting fevers chills denies any trauma. Patient resting comfortably chest pain-free for my evaluation. - Related Data Allergies/Adverse Reactions: No Known Allergies Allergy (Verified 09/29/17 14:39) Past Medical History - Social History Smoking Status: Never Smoker Chew tobacco use (# tins/day): No Frequency of alcohol use: None Drug Abuse: None Family History: DM, Malignancy Patient has suicidal ideation: No Patient has homicidal ideation: No - Past Medical History Cardiac Medical History: Reports: Hx Coronary Artery Disease, Hx Hypercholesterolemia, Hx Hypertension Denies: Hx Congestive Heart Failure, Hx DVT, Hx Heart Attack, Hx Pulmonary Embolism Pulmonary Medical History: Denies: Hx Asthma, Hx Bronchitis, Hx COPD, Hx Pneumonia, Hx Tuberculosis Neurological Medical History: Denies: Hx Cerebrovascular Accident, Hx Seizures Endocrine Medical History: Reports: Hx Diabetes Mellitus Type 1, Hx Diabetes Mellitus Type 2. Denies: Hx Hyperthyroidism, Hx Hypothyroidism Renal/ Medical History: Denies: Hx Peritoneal Dialysis GI Medical History: Denies: Hx Cirrhosis, Hx Gastroesophageal Reflux Disease, Hx Hepatitis Musculoskeltal Medical History: Reports Hx Arthritis Skin Medical History: Denies Hx Eczema, Denies Hx Psoriasis Psychiatric Medical History: Denies: Hx Depression Infectious Medical History: Denies: Hx Hepatitis Past Surgical History: Reports: Hx Abdominal Surgery - hernia x2, Hx Appendectomy, Hx Herniorrhaphy, Other - Had a G-tube (?J tube) placed and has now been removed, site well healed. Denies: Hx Pacemaker - Immunizations Hx Diphtheria, Pertussis, Tetanus Vaccination: Yes Review of Systems - Review of Systems Constitutional: No symptoms reported EENT: No symptoms reported Cardiovascular: Chest pain Respiratory: No symptoms reported Gastrointestinal: No symptoms reported Genitourinary: No symptoms reported Male Genitourinary: No symptoms reported Musculoskeletal: No symptoms reported Skin: No symptoms reported Hematologic/Lymphatic: No symptoms reported Neurological/Psychological: No symptoms reported -: Yes All other systems reviewed and negative Physical Exam - Vital signs Vitals: Temp Pulse Resp BP Pulse Ox 98.4 F 66 16 170/66 H 98 09/29/17 13:45 09/29/17 13:45 09/29/17 13:45 09/29/17 13:45 09/29/17 13:45 Interpretation: Normal - General General appearance: Appears well, Alert - HEENT Head: Normocephalic, Atraumatic Eyes: Normal Pupils: PERRL - Respiratory Respiratory status: No respiratory distress Chest status: Tender - Tenderness palpation of the left-sided chest reproduce patient pain Breath sounds: Normal Chest palpation: Normal - Cardiovascular Rhythm: Regular Heart sounds: Normal auscultation Murmur: No - Abdominal Inspection: Normal Distension: No distension Bowel sounds: Normal Tenderness: Nontender Organomegaly: No organomegaly - Back Back: Normal, Nontender - Extremities General upper extremity: Normal inspection, Nontender, Normal color, Normal ROM , Normal temperature General lower extremity: Normal inspection, Nontender, Normal color, Normal ROM , Normal temperature, Normal weight bearing. No: Rose's sign - Neurological Neuro grossly intact: Yes Cognition: Normal Orientation: AAOx4 Nichole Coma Scale Eye Opening: Spontaneous Nichole Coma Scale Verbal: Oriented Nichole Coma Scale Motor: Obeys Commands [place] Coma Scale Total: 15 Speech: Normal Motor strength normal: LUE, RUE, LLE, RLE Sensory: Normal - Psychological Associated symptoms: Normal affect, Normal mood - Skin Skin Temperature: Warm Skin Moisture: Dry Skin Color: Normal Course - Re-evaluation Re-evalutation: 09/29/17 22:32 The patient has atypical chest pain as the patient's chest pain is not suggestive of pulmonary embolus, cardiac ischemia, aortic dissection, or other serious etiology. Given the extremely low risk of these diagnoses further testing and evaluation for these possibilities does not appear to be indicated at this time. The patient has been instructed to return if the symptoms worsen or change in any way. Troponins basically similar no acute changes EKG. Patient's chest pain is reproducible on examination recommend patient follow-up PCP return to ER symptoms worsen - Vital Signs Vital signs: Temp Pulse Resp BP Pulse Ox 98.4 F 66 15 151/94 H 97 09/29/17 13:45 09/29/17 13:45 09/29/17 19:42 09/29/17 19:42 09/29/17 19:41 - Laboratory Result Diagrams: 09/29/17 15:11 09/29/17 15:11 Laboratory results interpreted by me: 09/29/17 09/29/17 15:11 15:11 Hgb 13.2 L RDW 14.1 H Sodium 147.6 H Glucose 117 H Discharge - Discharge Clinical Impression: Chest wall pain Condition: Good Disposition: HOME, SELF-CARE Instructions: Chest Wall Pain ([facility]) Additional Instructions: Laboratory studies not show any signs of cardiac ischemia. Your EKG not showing signs cardiac ischemia. Do believe your chest pain more likely chest wall pain could be underlying acid reflux. Please follow-up with your primary care physician return to ER symptoms worsen Forms: Return to Work Referrals: REAL KHALIL MD [Primary Care Provider] - Follow up in 3-5 days
[2017-09-29 19:44] VITALS: BP 151/94
== END 2017-09-29 19:45 | disposition home or self-care (01) ==
LOC: ER 13:34
DX: R07.89 Other chest pain (principal); I25.10 Atherosclerotic heart disease of native coronary artery without angina pectoris; E78.00 Pure hypercholesterolemia, unspecified; I10 Essential (primary) hypertension
CPT/HCPCS: 93005; 99285; 36415; 82550; 85025; 80053; 84484; 71046; 93010; J3490

== ENCOUNTER 2018-02-03 14:30 | Emergency (ER) | payer MEDICARE, OTHER ==
--- NOTE | 2018-02-03 14:48 | ER Document Report ---
ED Neck/Back Problem - General Chief Complaint: Back Pain Stated Complaint: LOW BACK PAIN Time Seen by Provider: 02/03/18 14:46 Mode of Arrival: Ambulatory Information source: Patient Notes: Patient complained of sudden onset of lower back pain which started last night. He denies any history of fall or injury or trauma to the back. Patient said the pain radiates down his left leg. He denies any hematuria or difficulty urinating. Patient also denies any chest pain, headache, shortness of breath or abdominal pain. TRAVEL OUTSIDE OF THE [place] IN LAST 30 DAYS: No - HPI Patient complains to provider of: Lower back Onset: Other - Last night Where: Home Onset: Sudden Timing: Constant Quality of pain: Sharp Severity: Moderate Pain Level: 3 Recent injury: No Associated symptoms: Lower back pain. denies: Chest pain, Abdominal pain, Constipation, Fever, Motor loss, Numbness/tingling Exacerbated by: Movement of trunk Relieved by: Remaining still Similar symptoms previously: No Recently seen / treated by doctor: No - Related Data Allergies/Adverse Reactions: No Known Allergies Allergy (Verified 02/03/18 14:31) Past Medical History - Social History Smoking Status: Unknown if Ever Smoked Family History: DM, Malignancy - Past Medical History Cardiac Medical History: Reports: Hx Coronary Artery Disease, Hx Hypercholesterolemia, Hx Hypertension Denies: Hx Congestive Heart Failure, Hx DVT, Hx Heart Attack, Hx Pulmonary Embolism Pulmonary Medical History: Denies: Hx Asthma, Hx Bronchitis, Hx COPD, Hx Pneumonia, Hx Tuberculosis Neurological Medical History: Denies: Hx Cerebrovascular Accident, Hx Seizures Endocrine Medical History: Reports: Hx Diabetes Mellitus Type 1, Hx Diabetes Mellitus Type 2. Denies: Hx Hyperthyroidism, Hx Hypothyroidism Renal/ Medical History: Denies: Hx Peritoneal Dialysis GI Medical History: Denies: Hx Cirrhosis, Hx Gastroesophageal Reflux Disease, Hx Hepatitis Musculoskeletal Medical History: Reports Hx Arthritis Skin Medical History: Denies Hx Eczema, Denies Hx Psoriasis Psychiatric Medical History: Denies: Hx Depression Infectious Medical History: Denies: Hx Hepatitis Past Surgical History: Reports: Hx Abdominal Surgery - hernia x2, Hx Appendectomy, Hx Herniorrhaphy, Other - Had a G-tube (?J tube) placed and has now been removed, site well healed. Denies: Hx Pacemaker - Immunizations Hx Diphtheria, Pertussis, Tetanus Vaccination: Yes Review of Systems - Review of Systems Constitutional: denies: Chills, Fever, Weakness, Weight loss EENT: No symptoms reported Cardiovascular: denies: Chest pain, Palpitations, Syncope, Dizziness Respiratory: denies: Cough, Short of breath Gastrointestinal: denies: Abdominal pain, Diarrhea, Nausea, Vomiting Genitourinary: No symptoms reported Male Genitourinary: No symptoms reported Musculoskeletal: Back pain, Muscle pain, Muscle stiffness Skin: No symptoms reported Hematologic/Lymphatic: No symptoms reported Neurological/Psychological: No symptoms reported -: Yes All other systems reviewed and negative Physical Exam - Vital signs Vitals: Temp Pulse Resp BP Pulse Ox 98.2 F 68 16 144/63 H 95 02/03/18 14:39 02/03/18 14:39 02/03/18 14:39 02/03/18 14:39 02/03/18 14:39 - General General appearance: Appears well, Alert In distress: Mild - HEENT Head: Normocephalic, Atraumatic Eyes: Normal Pupils: PERRL - Respiratory Respiratory status: No respiratory distress Chest status: Nontender Breath sounds: Normal Chest palpation: Normal - Cardiovascular Rhythm: Regular Heart sounds: Normal auscultation Murmur: No - Abdominal Inspection: Normal Distension: No distension Bowel sounds: Normal Tenderness: Nontender Organomegaly: No organomegaly - Back Back: Normal, Tender, Other - Left lower paraspinal tenderness to palpation.. No: Vertebra tenderness - Extremities General upper extremity: Normal inspection, Nontender, Normal color, Normal ROM , Normal temperature General lower extremity: Normal inspection, Nontender, Normal color, Normal ROM , Normal temperature, Normal weight bearing. No: Rose's sign Notes: Patient was able to ambulate in the ED with a cane without any problem. - Neurological Neuro grossly intact: Yes Cognition: Normal Orientation: AAOx4 Nichole Coma Scale Eye Opening: Spontaneous Nichole Coma Scale Verbal: Oriented [place] Coma Scale Motor: Obeys Commands Nichole Coma Scale Total: 15 Speech: Normal Motor strength normal: LUE, RUE, LLE, RLE Sensory: Normal - Psychological Associated symptoms: Normal affect, Normal mood - Skin Skin Temperature: Warm Skin Moisture: Dry Skin Color: Normal Course - Vital Signs Vital signs: Temp Pulse Resp BP Pulse Ox 98.2 F 68 19 156/83 H 94 02/03/18 14:39 02/03/18 14:39 02/03/18 18:01 02/03/18 18:01 02/03/18 18:01 - Laboratory Result Diagrams: 02/03/18 15:10 02/03/18 15:10 Laboratory results interpreted by me: 02/03/18 02/03/18 02/03/18 15:10 15:10 16:30 Seg Neutrophils % 81.9 H Lymphocytes % 8.9 L Absolute Neutrophils 8.5 H BUN 23 H Glucose 182 H Urine Glucose (UA) >=500 H - Diagnostic Test Radiology reviewed: Image reviewed, Reports reviewed - Transfer of Care Notes: 02/03/18 15:03 Low back pain. Sciatica. Discharge - Discharge Clinical Impression: Central stenosis of spinal canal Lower back pain Qualifiers: Chronicity: acute Back pain laterality: left Sciatica presence: with sciatica Sciatica laterality: sciatica of left side Qualified Code(s): M54.42 - Lumbago with sciatica, left side Sciatica Qualifiers: Laterality: left Qualified Code(s): M54.32 - Sciatica, left side Condition: Stable Disposition: HOME, SELF-CARE Instructions: Low Back Pain ([facility]) Additional Instructions: Please follow-up with Dr. Flores on Tuesday morning. Return to the emergency room if her condition worsens. Prescriptions: Cyclobenzaprine HCl [Flexeril 5 mg Tablet] 5 mg PO TID #15 tablet Ibuprofen 600 mg PO Q8H PRN #20 tablet PRN Reason: Pain Scale Of 3 Methylprednisolone [Medrol Dosepack (4 mg/Tab) 21 Tab/Dosepak] 4 mg PO ASDIR PRN #21 tab.ds.pk PRN Reason: Referrals: REAL KHALIL MD [Primary Care Provider] - Follow up as needed PAULINO FLORES MD [ACTIVE STAFF] - Follow up as needed
[2018-02-03] MEDS ORDERED: ONDANSETRON HCL INJ/PF 4 MG/2 ML SDV IV ONE (14:57)
[2018-02-03] MEDS ORDERED: DEXAMETHASONE SOD PHOS INJ 10 MG/1 ML VIAL IV ONE (14:57)
[2018-02-03] MEDS ORDERED: MORPHINE SULFATE 10 MG/ML INJ IV ONE (14:57)
[2018-02-03] MEDS ORDERED: CYCLOBENZAPRINE HCL 10 MG TABLET PO ONE (14:58)
[2018-02-03 15:37] LABS: ABSOLUTE BASOPHILS # (AUTO) 0.1 10^3/uL (0.0-0.2); ABSOLUTE EOSINOPHILS # (AUTO) 0.1 10^3/uL (0.0-0.6); ABSOLUTE LYMPHOCYTES (AUTO) 0.9 10^3/uL (0.5-4.7); ABSOLUTE MONOCYTES (AUTO) 0.8 10^3/uL (0.1-1.4); ABSOLUTE NEUT (AUTO) 8.5 10^3/uL (1.7-8.2); BASOPHILS % (AUTO) 0.8 % (0-2); EOSINOPHILS % (AUTO) 0.6 % (0-6); HEMATOCRIT 42.4 % (37.9-51.0); HEMOGLOBIN 14.6 g/dL (13.5-17.0); LYMPHOCYTES % (AUTO) 8.9 % (13-45); MEAN CORPUSCULAR HEMOGLOBIN 30.5 pg (27.0-33.4); MEAN CORPUSCULAR HGB CONC 34.6 g/dL (32.0-36.0); MEAN CORPUSCULAR VOLUME 88 fl (80-97); MONOCYTES % (AUTO) 7.8 % (3-13); PLATELET COUNT 160 10^3/uL (150-450); RED BLOOD COUNT 4.79 10^6/uL (4.35-5.55); RED CELL DISTRIBUTION WIDTH 13.5 % (11.5-14.0); SEGMENTED NEUTROPHILS % (AUTO) 81.9 % (42-78); TOTAL CELLS COUNTED % (AUTO) 100 %; WHITE BLOOD COUNT 10.3 10^3/uL (4.0-10.5)
[2018-02-03 15:46] LABS: ALANINE AMINOTRANSFERASE 29 U/L (21-72); ALBUMIN 4.7 g/dL (3.5-5.0); ALKALINE PHOSPHATASE 70 U/L (38-126); ANION GAP 9 (5-19); ASPARTATE AMINO TRANSFERASE 26 U/L (17-59); BILIRUBIN,DIRECT 0.3 mg/dL (0.0-0.4); BILIRUBIN,TOTAL 0.6 mg/dL (0.2-1.3); BLOOD UREA NITROGEN 23 mg/dL (7-20); CALCIUM 9.8 mg/dL (8.4-10.2); CARBON DIOXIDE 29 mmol/L (22-30); CHLORIDE 105 mmol/L (98-107); GLUCOSE 182 mg/dL (75-110); POTASSIUM 3.9 mmol/L (3.6-5.0); SODIUM 143.3 mmol/L (137-145); TOTAL PROTEIN 8.2 g/dL (6.3-8.2)
[2018-02-03 15:53] LABS: INTERNATIONAL RATION (INR) 0.93; PROTHROMBIN TIME 12.9 SEC (11.4-15.4)
--- NOTE | 2018-02-03 16:34 | RADIOLOGY REPORT (SQ) ---
EXAM DESCRIPTION: CT LUMBAR SPINE WITHOUT COMPLETED DATE/TIME: 02/03/2018 3:57 pm REASON FOR STUDY: Lower back pain COMPARISON: Abdominal films 09/16/2017 CT abdomen pelvis 09/15/2017 TECHNIQUE: Axial images acquired through the lumbar spine without intravenous contrast. Images revi ewed with lung, soft tissue and bone windows. Reconstructed coronal and sagittal MPR images reviewed . All images stored on PACS. All CT scanners at this facility use dose modulation, iterative reconstruction, and/or weight based d osing when appropriate to reduce radiation dose to as low as reasonably achievable (ALARA). [facility]: Dose Right [facility]: CareDose [facility]: Dose Right [facility]: Teradose 4D [facility]: [employer] RADIATION DOSE: 15.6 mGy. LIMITATIONS: None. FINDINGS: SEGMENTATION: Normal. No transitional anatomy. ALIGNMENT: Grade 1 anterolisthesis of L4 over L5 VERTEBRAL BODIES: No fractures. No dislocation. No acute findings. DISCS: T12-L1, L1-2, and L2-3 are unremarkable. At L3-4, there is broad diffuse posterior disc bulging and moderate bilateral facet and ligament hype rtrophy causing mild to moderate central canal stenosis. This is best shown on axial image 53 and sa gittal image 29. There is mild bilateral inferior foraminal narrowing without exiting L3 nerve root impingement. At L4-5, grade 1 anterolisthesis of L4 over L5 related to advanced bilateral facet arthropathy is pre sent. This finding along with ligamentum flavum thickening and broad diffuse posterior disc bulge an d bony spurring causes high-grade central canal stenosis. This is best shown on sagittal image 28 an d axial image 64. Elsewhere at L4-5, high-grade bilateral foraminal narrowing is present with partia l effacement of fat around the exiting L4 nerve roots right greater than left. At L5-S1, broad diffuse posterior disc bulge is present with moderate bilateral facet and ligament hy pertrophy. No central stenosis. Mild bilateral inferior foraminal narrowing. PEDICLES, TRANSVERSE PROCESSES: No fractures. No dislocation. No acute findings. FACETS, POSTERIOR ELEMENTS: No fractures. No dislocation. HARDWARE: None in the spine. VISUALIZED RIBS: No fractures. SOFT TISSUES: No significant or acute finding in adjacent soft tissues. OTHER: No other significant finding. IMPRESSION: No acute fracture or malalignment. Central canal stenosis at L3-4 and L4-5. TECHNICAL DOCUMENTATION: JOB ID: [id number] Quality ID # [id number]: Final reports with documentation of one or more dose reduction techniques (e.g., Au tomated exposure control, adjustment of the mA and/or kV according to patient size, use of iterative reconstruction technique) 2010 [employer]- All Rights Reserved Reading location - IP/workstation name: [email or web address]
[2018-02-03 16:40] LABS: APPEARANCE,URINE CLEAR; BILIRUBIN,URINE NEGATIVE (NEGATIVE); COLOR,URINE STRAW; GLUCOSE, URINE >=500 mg/dL (NEGATIVE); KETONES,URINE NEGATIVE (NEGATIVE); LEUKOCYTE ESTERASE,URINE NEGATIVE (NEGATIVE); NITRITE,URINE NEGATIVE (NEGATIVE); PROTEIN,URINE NEGATIVE (NEGATIVE); URINE SPECIFIC GRAVITY 1.022; UROBILINOGEN,URINE NEGATIVE mg/dL (<2.0)
[2018-02-03 18:23] VITALS: BP 156/83
== END 2018-02-03 18:37 | disposition home or self-care (01) ==
LOC: ER 14:30
DX: M48.061 Spinal stenosis, lumbar region without neurogenic claudication (principal); M54.42 Lumbago with sciatica, left side; I25.10 Atherosclerotic heart disease of native coronary artery without angina pectoris; I10 Essential (primary) hypertension; E11.9 Type 2 diabetes mellitus without complications
CPT/HCPCS: 36415; 72131; 80053; 81001; 85025; 85610; 96374; 96375; 99284

== ENCOUNTER → 2018-02-11 | Outpatient (CLI) | payer MEDICARE, OTHER ==
--- NOTE | 2018-02-11 10:21 | RADIOLOGY REPORT (SQ) ---
EXAM DESCRIPTION: MRI LUMBAR SPINE WITHOUT COMPLETED DATE/TIME: 02/11/2018 9:11 am REASON FOR STUDY: LUMBAGO WITH SCIATICA LEFT SIDE M54.42 LUMBAGO WITH SCIATICA, LEFT SIDE COMPARISON: CT lumbar spine 02/03/2018 CT abdomen pelvis 09/15/2017 TECHNIQUE: Sagittal and Axial imaging includes T1, T2, STIR and gradient echo sequences. Coronal T2/ HASTE imaging. LIMITATIONS: None. FINDINGS: VISUALIZED UPPER ABDOMEN: Unremarkable SEGMENTATION: No transitional anatomy. The lowest well-developed disc space is labeled L5-S1. ALIGNMENT: Grade 1 anterolisthesis of L4 over L5 related to advanced facet arthropathy VERTEBRAE: Intact. BONE MARROW: Normal. No marrow replacement or reactive changes. DISC SIGNAL: Diffuse decreased T2 weighted intervertebral signal. POSTERIOR ELEMENTS: Generally intact. No pars defect evident. HARDWARE: None in the spine. CORD AND CONUS: Normal in size and signal intensity. Conus at the T12-L1 level. SOFT TISSUES: No aortic aneurysm seen. No bulky retroperitoneal adenopathy or mass. No paraspinal mas s or fluid. T11-12: Unremarkable T12-L1: Unremarkable L1-L2: Posterior disc bulging with small left paracentral protrusion and moderate bilateral facet hyp ertrophy. No central stenosis. No significant foraminal narrowing. L2-L3: No significant posterior disc bulging. Moderate bilateral facet and ligament hypertrophy. No central or foraminal stenosis. L3-L4: Mild central canal narrowing with flattening of the thecal sac into a triangular shape from br oad diffuse posterior disc bulging and moderate bilateral facet and ligament hypertrophy. This is be st shown on axial T2 image 20. Mild bilateral inferior foraminal narrowing without exiting L3 nerve root impingement. L4-L5: Moderate to high-grade central canal stenosis results from grade 1 anterolisthesis of L4 over L5, broad diffuse posterior disc bulge and bony spurring, and bulky bilateral facet and ligament hype rtrophy. This best shown on axial T2 image 25 and 26. High-grade right, moderate to high-grade left foraminal narrowing. Partial effacement of the fat around the exiting right L4 nerve root in the ne ural foramen. L5-S1: Minimal posterior disc bulging, moderate bilateral facet and ligament hypertrophy. No central or foraminal encroachment. SACRUM: Visualized upper sacrum intact. OTHER: No other significant findings. IMPRESSION: Degenerative changes most pronounced at L3-4 and L4-5 as above TECHNICAL DOCUMENTATION: JOB ID: [id number] [email or web address]- All Rights Reserved Reading location - IP/workstation name: [email or web address]
== END ==
LOC: RAD 07:47
PROVIDERS: ATTEND Physician Assistant
DX: M54.42 Lumbago with sciatica, left side (principal); M47.896 Other spondylosis, lumbar region
CPT/HCPCS: 72148

== ENCOUNTER 2018-05-12 22:27 | Emergency (ER) | payer MEDICARE, OTHER ==
[2018-05-12] MEDS ORDERED: ONDANSETRON HCL INJ/PF 4 MG/2 ML SDV IV ONE (23:14)
[2018-05-12] MEDS ORDERED: LORAZEPAM INJ 2 MG/1 ML VIAL IV ONE (23:14)
[2018-05-12] MEDS ORDERED: METOCLOPRAMIDE HCL INJ/PF 10 MG/2 ML SDV IV ONE (23:14)
[2018-05-12] MEDS ORDERED: NORMAL SALINE 1000 ML 1,000 ML IV ONE (23:14)
[2018-05-12 23:42] LABS: HEMATOCRIT 45.6 % (37.9-51.0); HEMOGLOBIN 15.5 g/dL (13.5-17.0); MEAN CORPUSCULAR HEMOGLOBIN 29.9 pg (27.0-33.4); MEAN CORPUSCULAR HGB CONC 34.1 g/dL (32.0-36.0); MEAN CORPUSCULAR VOLUME 88 fl (80-97); PLATELET COUNT 166 10^3/uL (150-450); RED BLOOD COUNT 5.19 10^6/uL (4.35-5.55); RED CELL DISTRIBUTION WIDTH 13.4 % (11.5-14.0); WHITE BLOOD COUNT 10.7 10^3/uL (4.0-10.5)
[2018-05-12 23:45] LABS: ALANINE AMINOTRANSFERASE 26 U/L (21-72); ALBUMIN 5.5 g/dL (3.5-5.0); ALKALINE PHOSPHATASE 89 U/L (38-126); ANION GAP 19 (5-19); ASPARTATE AMINO TRANSFERASE 25 U/L (17-59); BILIRUBIN,DIRECT 0.3 mg/dL (0.0-0.4); BILIRUBIN,TOTAL 0.9 mg/dL (0.2-1.3); BLOOD UREA NITROGEN 21 mg/dL (7-20); CALCIUM 10.5 mg/dL (8.4-10.2); CARBON DIOXIDE 19 mmol/L (22-30); CHLORIDE 107 mmol/L (98-107); GLUCOSE 236 mg/dL (75-110); LIPASE 32.2 U/L (23-300); POTASSIUM 3.4 mmol/L (3.6-5.0); SODIUM 144.6 mmol/L (137-145); TOTAL PROTEIN 8.8 g/dL (6.3-8.2)
[2018-05-13] MEDS ORDERED: HYDROCHLOROTHIAZIDE 25 MG TABLET PO ONE
[2018-05-13 00:07] LABS: ABSOLUTE LYMPHOCYTES# (MANUAL) 0.4 10^3/uL (0.5-4.7); ABSOLUTE MONOCYTES # (MANUAL) 0.4 10^3/uL (0.1-1.4); ABSOLUTE NEUTROPHILS# (MANUAL) 9.8 10^3/uL (1.7-8.2); BASOPHILS % (MANUAL) 0 % (0-2); EOSINOPHILS % (MANUAL) 0 % (0-6); LYMPHOCYTES % (MANUAL) 4 % (13-45); MONOCYTES % (MANUAL) 4 % (3-13); SEGMENTED NEUTROPHILS % (MAN) 92 % (42-78); TOTAL CELLS COUNTED 100
[2018-05-13 00:08] LABS: PLATELET COMMENT ADEQUATE; RBC MORPHOLOGY COMMENT NORMO-CYTIC/CHROMIC
--- NOTE | 2018-05-13 00:27 | ER Document Report ---
ED General - General Chief Complaint: Nausea/Vomiting/Diarrhea Stated Complaint: NAUSEA,VOMITING,DIARRHEA Time Seen by Provider: 05/12/18 23:08 Notes: Patient is a 73-year-old male presents with complaint of vomiting and some loose stools. Also some upper abdominal pain. He has a history of diabetes and gastroparesis. He has a history of being noncompliant. Patient says he is not convinced this is his gastroparesis. In reviewing his records he has had this exact same symptoms a few times and has been related to his gastroparesis in the past as well as noncompliance with some of his medications. Last time he had not been taking his Cymbalta which seemed to have contributed weeks when he was placed back on that he got better. When I asked him about taking his medications he admits that he is not completely compliant. He said he did take his Cymbalta today but has not taken the last several days sitting up to now. He says that his blood sugars are somewhat controlled. He says they fluctuate. He denies any blood in his emesis. No blood in his stool. Stools are loose. He denies any fevers. No other complaints at this time. He is also found to be hypertensive. He admits he does not always take his blood pressure medications. His says his blood pressure usually runs in the 180s systolically. Patient says previous abdominal surgeries include appendectomy and hernia repair. TRAVEL OUTSIDE OF THE [place] IN LAST 30 DAYS: No - Related Data Allergies/Adverse Reactions: No Known Allergies Allergy (Verified 02/03/18 14:31) Past Medical History - Social History Smoking Status: Never Smoker Frequency of alcohol use: None Drug Abuse: None Family History: DM, Malignancy - Past Medical History Cardiac Medical History: Reports: Hx Coronary Artery Disease, Hx Hypercho lesterolemia, Hx Hypertension Denies: Hx Congestive Heart Failure, Hx DVT, Hx Heart Attack, Hx Pulmonary Embolism Pulmonary Medical History: Denies: Hx Asthma, Hx Bronchitis, Hx COPD, Hx Pneumonia, Hx Tuberculosis Neurological Medical History: Denies: Hx Cerebrovascular Accident, Hx Seizures Endocrine Medical History: Reports: Hx Diabetes Mellitus Type 1, Hx Diabetes Mellitus Type 2. Denies: Hx Hyperthyroidism, Hx Hypothyroidism Renal/ Medical History: Denies: Hx Peritoneal Dialysis GI Medical History: Denies: Hx Cirrhosis, Hx Gastroesophageal Reflux Disease, Hx Hepatitis Musculoskeletal Medical History: Reports Hx Arthritis Skin Medical History: Denies Hx Eczema, Denies Hx Psoriasis Psychiatric Medical History: Denies: Hx Depression Infectious Medical History: Denies: Hx Hepatitis Past Surgical History: Reports: Hx Abdominal Surgery - hernia x2, Hx Appendectomy, Hx Herniorrhaphy, Other - Had a G-tube (?J tube) placed and has no w been removed, site well healed. Denies: Hx Pacemaker - Immunizations Hx Diphtheria, Pertussis, Tetanus Vaccination: Yes Review of Systems - Review of Systems Notes: My Normal Review Basic REVIEW OF SYSTEMS: CONSTITUTIONAL : Denies fever, chills, or sweats. Denies recent illness. EENT: Denies eye, ear, throat, or mouth pain or symptoms. Denies nasal or sinus congestion. CARDIOVASCULAR: Denies chest pain. RESPIRATORY: Denies cough, cold, or chest congestion. Denies shortness of breath, difficulty breathing, or wheezing. GASTROINTESTINAL: abdominal pain and vomiting GENITOURINARY: Denies difficulty urinating, painful urination, burning, frequency, or blood in urine. MUSCULOSKELETAL: some body aches SKIN: Denies rash or skin lesions. NEUROLOGICAL: Denies altered mental status or loss of consciousness. Denies headache. Denies weakness or paralysis or loss of use of either side. Denies problems with gait or speech. Denies sensory or motor loss. ALL OTHER SYSTEMS REVIEWED AND NEGATIVE. Physical Exam - Vital signs Vitals: Temp Pulse Resp BP Pulse Ox 97.5 F 88 20 195/88 H 100 05/12/18 22:44 05/12/18 22:44 05/12/18 22:44 05/12/18 22:44 05/12/18 22:44 - Notes Notes: General Appearance: Well nourished, alert, cooperative but anxious appearing, no acute distress, mild to moderate obvious discomfort. Vitals: reviewed, See vital signs table. Head: no swelling or tenderness to the head Eyes: PERRL, EOMI, Conjuctiva clear Mouth: No decreasd moisture Throat: No tonsillar inflammation, No airway obstruction, No lymphadenopathy Lungs: No wheezing, No rales, No rhonci, No accessory muscle use, good air exchange bilaterally. Heart: Normal rate, Regular rythm, No murmur, no rub Abdomen: Normal BS, soft, No rigidity, epigastric abdominal tenderness to palpation, No guarding, no rebound, no abdominal masses, no organomegaly Extremities: strength 5/5 in all extremities, good pulses in all extremities, no swelling or tenderness in the extremities, no edema. Skin: warm, dry, appropriate color, no rash Neuro: speech clear, oriented x 3, normal affect, responds appropriately to questions. Course - Re-evaluation Re-evalutation: 05/13/18 00:31 Since receiving the Reglan patient has not had any further vomiting and is resting comfortably. Patient's potassium is little low and therefore will give him some supplemental potassium and monitor while he receives potassium to make sure he does not have recurrent vomiting. Laboratory evaluation is unremarkable except for hyperkalemia and mild metabolic acidosis. 05/13/18 04:33 Patient remained pain-free and vomiting free for approximately 6 hours after receiving the Reglan. His discharge was delayed because the nurse was busy doing other things. He was discharged and that he started feeling his symptoms come back. Has pain again is epigastric region. I still think he likely has gastroparesis; however, I will do a abdominal CT scan due to recurrent pain has history of chronic hypertension which he is noncompliant with his medications for. 05/13/18 06:23 CT scan was obtained and was normal. I suspect there is a strong psychosomatic component to the patient's symptoms. I suspect this based on reviewing his previous admissions and the fact that his symptoms improved with psychiatric medication such as Cymbalta and Ativan. Also I feel there is a psychosomatic component as I would walk past him several times and the patient is resting comfortably in the bed and looking around and in no distress. I would do this and then knocked on the door door and walk in the room and then the patient was immediately set up and appears if he was having recurrent nausea. Patient's laboratory evaluation is unremarkable. Patient has been here now for well over 6 hours and has not had any recurrent vomiting. His abdominal exam is benign. He still has some epigastric abdominal pain but it is not severe and his abdomen is soft and not rigid or firm. I suspect patient probably has potentially some gastroparesis but also this could be more of a psychosomatic cyclic vomiting type syndrome as well. I will place the patient has Reglan as this worked very well for him. I informed him to take it. I encouraged him to do a clear liquid diet for the next 24 hours and then he can slowly progress to very bland foods. Informed him to return to ER if he has recurrent vomiting, worsening pain, fev ers, or feels unwell. Patient agrees with plan and will be discharged home. Also explained to the patient the very importance of him to take his medications at home as well. He is really not very compliant with his medications. He has chronic high blood pressure which he needs to manage better with his medications. Dictation of this chart was performed using voice recognition software; theref ore, there may be some unintended grammatical errors. 05/13/18 06:25 - Vital Signs Vital signs: Temp Pulse Resp BP Pulse Ox 98.1 F 91 16 184/88 H 98 05/13/18 05:33 05/13/18 05:33 05/13/18 05:33 05/13/18 05:33 05/13/18 05:33 - Laboratory Result Diagrams: 05/12/18 23:24 05/12/18 23:24 Laboratory results interpreted by me: 05/12/18 05/12/18 23:24 23:24 WBC 10.7 H Seg Neuts % (Manual) 92 H Lymphocytes % (Manual) 4 L Abs Neuts (Manual) 9.8 H Abs Lymphs (Manual) 0.4 L Potassium 3.4 L Carbon Dioxide 19 L BUN 21 H Glucose 236 H Calcium 10.5 H Total Protein 8.8 H Albumin 5.5 H Discharge - Discharge Clinical Impression: Hyperglycemia, Hypokalemia Vomiting Qualifiers: Vomiting type: unspecified Vomiting Intractability: non-intractable Nausea pres ence: with nausea Qualified Code(s): R11.2 - Nausea with vomiting, unspecified Abdominal pain Qualifiers: Abdominal location: epigastric Qualified Code(s): R10.13 - Epigastric pain Hypertension Qualifiers: Hypertension type: unspecified Qualified Code(s): I10 - Essential (primary) hypertension Disposition: HOME, SELF-CARE Additional Instructions: Please have a low threshold to return to the ER if you have recurrent vomiting, worsening pain, increasing blood sugar, fevers, or if you have further concerns. Please take your medications as prescribed. Do not skip your medications. Follow up with your doctor on Tuesday or Tuesday for reevlauation. Prescriptions: RX: Magnesium Oxide 400 mg PO DAILY #7 tablet Metoclopramide HCl [Reglan 10 mg Tablet] 1 tab PO ASDIR PRN #25 tablet PRN Reason: RX: Potassium Chloride 20 meq PO DAILY #14 capsule.er Forms: Return to Work Referrals: REAL KHALIL MD [Primary Care Provider] - 05/15/18
[2018-05-13] MEDS ORDERED: POTASSI CL 20 MEQ/50 ML RIDER 20 MEQ/50 ML RTUPB IV ONE (00:28)
[2018-05-13] MEDS ORDERED: POTASSIUM CHLORIDE 10 MEQ CAPSULE.ER PO ONE (00:28)
[2018-05-13] MEDS ORDERED: METOCLOPRAMIDE HCL INJ/PF 10 MG/2 ML SDV IV ONE (04:32)
[2018-05-13] MEDS ORDERED: NORMAL SALINE 500 ML IV ONE (04:32)
--- NOTE | 2018-05-13 05:07 | RADIOLOGY REPORT (SQ) ---
CLINICAL HISTORY: abdominal pain, epigastric COMPARISON: None. 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 FINDINGS: Lower lungs are clear. Abdomen: The liver is normal in appearance. There is no biliary dilatation. Gallbladder is normal in appearance. The pancreas and spleen are normal in appearance. Adrenal glands are normal. There are tiny cysts within both kidneys. Abdominal aorta is normal in course and caliber without aneurysm. There is no free air. There is no retroperitoneal adenopathy. Pelvis: There is no bowel obstruction. Urinary bladder is unremarkable. There is no free fluid. Appendix is not seen. Skeleton: There are no acute osseous findings. No suspicious bony lesions. IMPRESSION: No definite acute inflammatory process.
[2018-05-13] MEDS ORDERED: PROMETHAZINE HCL 25 MG SUPP.RECT PR ONE (05:14)
[2018-05-13 05:34] VITALS: BP 184/88
== END 2018-05-13 05:34 | disposition home or self-care (01) ==
LOC: ER 22:27
DX: E11.65 Type 2 diabetes mellitus with hyperglycemia (principal); E11.43 Type 2 diabetes mellitus with diabetic autonomic (poly)neuropathy; K31.84 Gastroparesis; E87.6 Hypokalemia; R11.2 Nausea with vomiting, unspecified; R10.13 Epigastric pain; I10 Essential (primary) hypertension; R19.7 Diarrhea, unspecified; R10.10 Upper abdominal pain, unspecified; E11.9 Type 2 diabetes mellitus without complications; Z79.01 Long term (current) use of anticoagulants; Z79.899 Other long term (current) drug therapy; I25.10 Atherosclerotic heart disease of native coronary artery without angina pectoris
CPT/HCPCS: 99285; 96361; 96375; 96365; 96366; 36415; 83690; 83735; 85025; 80053; 74177; J2765 ×2; J2060; A9270 ×2; J2405; J3480; J7030; J7040; J3490

== ENCOUNTER → 2018-08-23 | Outpatient (CLI) | payer BC, MEDICARE, OTHER ==
--- NOTE | 2018-08-23 08:48 | RADIOLOGY REPORT (SQ) ---
EXAM DESCRIPTION: DUPLEX ART/NJ FLOW COMPLETE COMPLETED DATE/TIME: 08/23/2018 8:25 am REASON FOR STUDY: RENOVASCULAR HYPERTENSION (I15.0) I15.0 RENOVASCULAR HYPERTENSION I70.1 ATHEROSC LEROSIS OF RENAL ARTERY COMPARISON: CT 05/13/2018 TECHNIQUE: Realtime and static grayscale images acquired. Selected color Doppler, velocities and spe ctral images recorded. LIMITATIONS: Proximal renal arteries were not visualized. FINDINGS: RIGHT KIDNEY: RENAL ARTERY VELOCITIES: 100.5 cm/sec at the hilum. Segmental artery velocity 21.6 cm/sec. RENAL VEIN: Color doppler flow present, patent. VELOCITY RATIO: 1.19. Normal waveforms. KIDNEY: Normal in size measuring 11.3 cm. No significant pathology. Renal cysts, largest in the l ower pole measuring up to 1.1 cm. LEFT KIDNEY: RENAL ARTERY VELOCITIES: 123.6 cm/sec at the hilum. Segmental artery velocity is 44.8 cm/sec. RENAL VEIN: Color doppler flow present, patent. VELOCITY RATIO: 1.46. Normal waveforms. KIDNEY: Normal size. No significant pathology. Renal cysts, largest in the upper pole measuring 1 .8 Cm. BLADDER: Unremarkable. OTHER: Aortic velocity 84.6 cm/second. Prostatomegaly measuring 4.8 cm. Possible hepatic steatosis. IMPRESSION: No Doppler evidence of hemodynamically significant renal artery stenosis. Prostatomegaly. Bilateral renal cysts, largest measuring 1.8 cm. COMMENT: NORMAL RENAL ARTERY/AORTA VELOCITY RATIO IS LESS THAN OR EQUAL TO 3.5. TECHNICAL DOCUMENTATION: JOB ID: [id number] [employer]- All Rights Reserved Reading location - IP/workstation name: [email or web address]
== END ==
LOC: RAD 06:56
PROVIDERS: ATTEND Physician Assistant
DX: I15.0 Renovascular hypertension (principal)
CPT/HCPCS: 93975

== ENCOUNTER 2018-09-13 01:13 | Emergency (ER) | payer MEDICARE, BC, OTHER ==
[2018-09-13] MEDS ORDERED: HALOPERIDOL LACTATE INJ 5 MG/1 ML VIAL IV ONE ×2 (01:25→02:35)
[2018-09-13] MEDS ORDERED: RINGERS SOLUTION,LACTATED 500 ML IV ONE (01:25)
[2018-09-13 02:31] LABS: APPEARANCE,URINE CLEAR; BILIRUBIN,URINE NEGATIVE (NEGATIVE); COLOR,URINE YELLOW; GLUCOSE, URINE >=500 mg/dL (NEGATIVE); KETONES,URINE 80 mg/dL (NEGATIVE); LEUKOCYTE ESTERASE,URINE NEGATIVE (NEGATIVE); NITRITE,URINE NEGATIVE (NEGATIVE); PROTEIN,URINE 100 mg/dL (NEGATIVE); URINE SPECIFIC GRAVITY 1.024; UROBILINOGEN,URINE NEGATIVE mg/dL (<2.0)
[2018-09-13 02:39] LABS: ABSOLUTE BASOPHILS # (AUTO) 0.1 10^3/uL (0.0-0.2); ABSOLUTE LYMPHOCYTES (AUTO) 0.6 10^3/uL (0.5-4.7); ABSOLUTE MONOCYTES (AUTO) 0.3 10^3/uL (0.1-1.4); ABSOLUTE NEUT (AUTO) 10.7 10^3/uL (1.7-8.2); BASOPHILS % (AUTO) 0.5 % (0-2); HEMATOCRIT 43.3 % (37.9-51.0); LYMPHOCYTES % (AUTO) 5.5 % (13-45); MEAN CORPUSCULAR HEMOGLOBIN 30.7 pg (27.0-33.4); MEAN CORPUSCULAR HGB CONC 34.6 g/dL (32.0-36.0); MEAN CORPUSCULAR VOLUME 89 fl (80-97); MONOCYTES % (AUTO) 2.5 % (3-13); PLATELET COUNT 132 10^3/uL (150-450); RED BLOOD COUNT 4.88 10^6/uL (4.35-5.55); RED CELL DISTRIBUTION WIDTH 13.7 % (11.5-14.0); SEGMENTED NEUTROPHILS % (AUTO) 91.5 % (42-78); TOTAL CELLS COUNTED % (AUTO) 100 %; WHITE BLOOD COUNT 11.7 10^3/uL (4.0-10.5)
--- NOTE | 2018-09-13 02:56 | ER Document Report ---
ED General - General Chief Complaint: Nausea/Vomiting/Diarrhea Stated Complaint: NAUSEA/VOMITING Time Seen by Provider: 09/13/18 01:23 Primary Care Provider: SREEKANTH BLOOM PA-C [PHYSICIAN [employer] UTILIZATION OFFICER] - Follow up as needed Notes: Patient is a 73-year-old male with a past medical history of hypertension, hyper lipidemia, poorly controlled diabetes, gastroparesis, multiple hospitalizations and ED visits for exacerbations of his gastroparesis with associated nausea and vomiting who presents tonight complaining of 24 hours of nausea and vomiting. The patient denies any associated abdominal pain, chest pain, diarrhea, shortness of breath, fever or constitutional symptoms. He reports that he is vomiting even water. Symptoms started gradually, have been worsening since onset. He has not tried any of his home medications including metoclopramide to try to treat his symptoms. No obvious worsening factor. States this does feel similar to when he had exacerbations of his gastroparesis in the past. He has had an appendectomy as well as a "gastroparesis surgery" in the past and also notes 2 prior hernia repair surgeries. He has not seen his primary care physician regarding today's concerns. Last bowel movement was shortly after arriving here in the emergency department. TRAVEL OUTSIDE OF THE [place] IN LAST 30 DAYS: No - Related Data Allergies/Adverse Reactions: No Known Allergies Allergy (Verified 02/03/18 14:31) Past Medical History - General Information source: Patient - Social History Smoking Status: Never Smoker Frequency of alcohol use: None Drug Abuse: None Family History: DM, Malignancy - Past Medical History Cardiac Medical History: Reports: Hx Coronary Artery Disease, Hx Hypercholesterolemia, Hx Hypertension Denies: Hx Congestive Heart Failure, Hx DVT, Hx Heart Attack, Hx Pulmonary Embolism Pulmonary Medical History: Denies: Hx Asthma, Hx Bronchitis, Hx COPD, Hx Pneumonia, Hx Tuberculosis Neurological Medical History: Denies: Hx Cerebrovascular Accident, Hx Seizures Endocrine Medical History: Reports: Hx Diabetes Mellitus Type 1, Hx Diabetes Mellitus Type 2. Denies: Hx Hyperthyroidism, Hx Hypothyroidism Renal/ Medical History: Denies: Hx Peritoneal Dialysis GI Medical History: Denies: Hx Cirrhosis, Hx Gastroesophageal Reflux Disease, Hx Hepatitis Musculoskeletal Medical History: Reports Hx Arthritis Skin Medical History: Denies Hx Eczema, Denies Hx Psoriasis Psychiatric Medical History: Denies: Hx Depression Infectious Medical History: Denies: Hx Hepatitis Past Surgical History: Reports: Hx Abdominal Surgery - hernia x2, Hx Appendectomy, Hx Herniorrhaphy, Other - Had a G-tube (?J tube) placed and has now been removed, site well healed. Denies: Hx Pacemaker - Immunizations Hx Diphtheria, Pertussis, Tetanus Vaccination: Yes Review of Systems - Review of Systems Notes: Constitutional: Negative for fever. HENT: Negative for sore throat. Eyes: Negative for visual changes. Cardiovascular: Negative for chest pain. Respiratory: Negative for shortness of breath. Gastrointestinal: Positive for vomiting Genitourinary: Negative for dysuria. Musculoskeletal: Negative for back pain. Skin: Negative for rash. Neurological: Negative for headaches, weakness or numbness. 10 point ROS negative except as marked above and in HPI. Physical Exam - Vital signs Vitals: Temp 97.9 F 09/13/18 01:25 Interpretation: Normal Notes: PHYSICAL EXAMINATION: GENERAL: Well-appearing, well-nourished and in no acute distress. HEAD: Atraumatic, normocephalic. EYES: Pupils equal round and reactive to light, extraocular movements intact, sclera anicteric, conjunctiva are normal. ENT: nares patent, oropharynx clear without exudates. Moderately dry mucous membranes. NECK: Normal range of motion, supple without lymphadenopathy LUNGS: Breath sounds clear to auscultation bilaterally and equal. No wheezes rales or rhonchi. HEART: Regular rate and rhythm without murmurs ABDOMEN: Soft, nontender, normoactive bowel sounds. No guarding, no rebound. No masses appreciated. EXTREMITIES: Normal range of motion, no pitting or edema. No cyanosis. NEUROLOGICAL: No focal neurological deficits. Moves all extremities spontaneously and on command. PSYCH: Highly anxious, tremulous intermittently. Appears to become tremulous when I walk into the room but this stops almost immediately upon my exit from the room. SKIN: Warm, Dry, normal turgor, no rashes or lesions noted. Course - Re-evaluation Re-evalutation: 09/13/18 02:56 Patient presents with nausea, vomiting, but no focal abdominal tenderness. No chest pain or shortness of breath by history. On exam the patient is nontoxic in appearance, vitals within normal limits with exception of hypertension of which the patient is a known history as well as a history of noncompliance. The patient has been here on multiple occasions under similar circumstances. Please review documentation from Dr. David Vicente from previous visit. Patient is demonstrating multiple similar behaviors here where he appears to be shaky, ask as though he is in discomfort when I enter the room but when I exit the room and walk past the glass door he is resting calmly and in no discomfort of any kind. He has not vomited while here in the emergency department. Will p.o. challenge. Labs pending. Two-view abdomen will also be obtained to exclude any concern for obstruction which seems quite unlikely given the patient did have a normal bowel movement shortly after arrival here to the emergency department. 09/13/18 03:37 Labs unremarkable with exception of mild hyperglycemia. No significant electrolyte abnormalities. Patient has been able to tolerate oral intake without any difficulty. At this time will discharge with return precautions and follow-up recommendations. Verbal discharge instructions given a the bedside and opportunity for questions given. Medication warnings reviewed. Patient is in agreement with this plan and has verbalized understanding of return precautions and the need for primary care follow-up in the next 24-72 hours. - Vital Signs Vital signs: Temp Pulse Resp BP Pulse Ox 97.9 F 09/13/18 01:25 - Laboratory Result Diagrams: 09/13/18 02:29 09/13/18 02:29 Laboratory results interpreted by me: 09/13/18 09/13/18 09/13/18 01:57 02:29 02:29 WBC 11.7 H Plt Count 132 L Seg Neutrophils % 91.5 H Lymphocytes % 5.5 L Monocytes % 2.5 L Absolute Neutrophils 10.7 H Sodium 146.0 H Potassium 3.5 L Chloride 112 H Carbon Dioxide 19 L Glucose 214 H Urine Protein 100 H Urine Glucose (UA) >=500 H Urine Ketones 80 H - Diagnostic Test Radiology reviewed: Image reviewed, Reports reviewed Radiology results interpreted by me: 09/13/18 03:39 Two-view abdomen: No evidence of obstruction or perforation - EKG Interpretation by Me Additional EKG results interpreted by me: 09/13/18 03:39 Sinus rhythm, right bundle branch block, rate 74. Intermittent PACs. Discharge - Discharge Clinical Impression: Gastroparesis due to DM Nausea and vomiting Qualifiers: Vomiting type: unspecified Vomiting Intractability: non-intractable Qualified Code(s): R11.2 - Nausea with vomiting, unspecified Condition: Good Disposition: HOME, SELF-CARE Additional Instructions: Your labs are reassuring today. Your x-ray does not show any evidence of a bowel obstruction. Your symptoms are likely related to underlying gastroparesis. Please take the Reglan that you have available to you at home. Continue to control your sugars per your normal insulin protocol at home. Please return to the emergency department immediately if you have intractable vomiting, worsening pain, become unable to tolerate fluids for more than 12 hours, pass out or have any other symptoms that are worrisome to you. Please follow-up with your primary care physician within the next 24-48 hours. Referrals: SREEKANTH BLOOM PA-C [PHYSICIAN [employer]ILIZATION OFFICER] - Follow up tomorrow
[2018-09-13 03:00] LABS: ALANINE AMINOTRANSFERASE 40 U/L (21-72); ALKALINE PHOSPHATASE 68 U/L (38-126); ANION GAP 15 (5-19); ASPARTATE AMINO TRANSFERASE 26 U/L (17-59); BILIRUBIN,DIRECT 0.2 mg/dL (0.0-0.4); BILIRUBIN,TOTAL 0.9 mg/dL (0.2-1.3); BLOOD UREA NITROGEN 17 mg/dL (7-20); CALCIUM 9.7 mg/dL (8.4-10.2); CARBON DIOXIDE 19 mmol/L (22-30); CHLORIDE 112 mmol/L (98-107); GLUCOSE 214 mg/dL (75-110); LIPASE 47.3 U/L (23-300); POTASSIUM 3.5 mmol/L (3.6-5.0); TOTAL PROTEIN 7.8 g/dL (6.3-8.2)
--- NOTE | 2018-09-13 03:23 | RADIOLOGY REPORT (SQ) ---
Abdomen two view on 09/13/2018 at 3:03 AM CLINICAL INDICATION: Vomiting COMPARISON: CT from 05/13/2018 FINDINGS: There is no free air. Bowel gas pattern is unremarkable. No increased stool to suggest constipation is noted. Calcifications in the left pelvis are consistent with phleboliths. No other abnormal calcification or mass effect is noted. Mild degenerative changes are noted in the lower lumbar spine. IMPRESSION: Nonspecific abdomen.
[2018-09-13 04:01] VITALS: BP 155/95
--- NOTE | 2018-09-13 07:47 | EKG REPORT ---
SEVERITY:- ABNORMAL ECG - SINUS RHYTHM ATRIAL PREMATURE COMPLEX RIGHT BUNDLE BRANCH BLOCK : Confirmed by: Jose Iqbal MD 13-Sep-2018 07:47:37
== END 2018-09-13 03:45 | disposition home or self-care (01) ==
LOC: ER 01:13
DX: E11.43 Type 2 diabetes mellitus with diabetic autonomic (poly)neuropathy (principal); K31.84 Gastroparesis; R11.2 Nausea with vomiting, unspecified; R19.7 Diarrhea, unspecified; E78.5 Hyperlipidemia, unspecified; I25.10 Atherosclerotic heart disease of native coronary artery without angina pectoris; E78.00 Pure hypercholesterolemia, unspecified; I10 Essential (primary) hypertension
CPT/HCPCS: 93005; 96376; 99284; 96361; 96374; 36415; 83690; 85025; 80053; 81001; 74019; 84484; 93010; J1630; J7120

== ENCOUNTER 2018-12-19 08:06 | Day surgery (SDC) | payer MEDICARE, BC, OTHER ==
[~2018-12-19 08:06] MED LIST: BUPIVACAINE HCL 0.75% INJ/PF (7.5 MG/1 ML) 10 ML SDV OS PRN; KETOROLAC TROMETHAMINE 0.45% 4 DROP/0.4 ML DROPERETTE OS PRN; LIDOCAINE 1% INJ-PF (10 MG/ML) 30 ML SDV ONE; LIDOCAINE 4% INJ/PF (40 MG/ML) 5 ML AMPUL OS PRN; MIDAZOLAM 2 MG/2 ML INJ ONE
[2018-12-19] MEDS: TETRACAINE HCL 0.5% OPH SOLN 4 ML OS PRN ×3 (09:01→09:32)
[2018-12-19] MEDS: BESIFLOXACIN HCL 0.6% OPH SUSP 5 ML BOTTLE OS PRN ×4 (09:01→10:09)
[2018-12-19] MEDS: CYCLOPENTOLATE 0.2%/PHENYLEPHRINE 1% OPH SOLN 2 ML OS PRN ×4 (09:02→09:23)
[2018-12-19] MEDS: TROPICAMIDE 1% OPH SOLN 3 ML OS PRN ×4 (09:02→09:23)
[2018-12-19] MEDS: EPINEPHRINE INJ/PF 1 MG/1 ML AMPULE ONE ×2 (09:49)
[2018-12-19] MEDS: CHONDR SU A NA/HYALUR INTRAOC KIT (SURGICARE) ONE ×2 (09:49)
[2018-12-19] MEDS: LIDOCAINE 1%/PHENYLEPHRINE 1.5% 1 ML VIAL ONE ×2 (09:49)
[2018-12-19] MEDS: DORZOLAMIDE HCL 2%/TIMOLOL MALEAT 0.5% OPH SOLN 10 ML OS PRN ×2 (10:09)
--- NOTE | 2018-12-19 11:11 | [facility] DISCHARGE SUMMARY E ---
[facility] Discharge Summary NAME: RICHARD RANDALL JR AGE: 73Y ADMITTED: 12/19/2018 DISCHARGED: 12/19/2018 FINAL DIAGNOSIS: Cataract, left eye. HOSPITAL COURSE: The patient is a 73-year-old gentleman who underwent uneventful cataract extraction with intraocular lens implant, left eye, on 12/19/2018. He will be discharged to home. He was instructed to resume preoperative medications; to take Tylenol as needed for discomfort; to keep his eye shielded; to use Besivance, Ilevro, and Durezol at 3 p.m. and 8 p.m.; and to follow up in my office in 1 day. DICTATING PHYSICIAN: VOLODYMYR FLORES M.D. [id number] PHY#: [id number] ID: [id number] JOB#: [id number] ACCT: [id number] cc:VOLODYMYR FLORES M.D. >
--- NOTE | 2018-12-19 11:11 | [facility] OPERATIVE REPORT E ---
[facility] Operative Report NAME: RICHARD RANDALL JR AGE: 73Y DATE OF SURGERY: 12/19/2018 ROOM: PREOPERATIVE DIAGNOSIS: Cataract, left eye. POSTOPERATIVE DIAGNOSIS: Cataract, left eye. OPERATION: Phacoemulsification with posterior chamber intraocular lens, left eye. SURGEON: VOLODYMYR FLORES M.D. ANESTHESIA: Topical with MAC. INDICATIONS FOR SURGERY: Difficulty driving at night. PROCEDURE: The patient was brought to the operating room and placed on the operative table. Following tetracaine drops, topical anesthesia was administered. This consisted of instrument wipe pledgets soaked in a solution of 4% Xylocaine mixed with 0.75% Marcaine in a 1:2 ratio. A 2 x 1 cm pledget was placed in the superior fornix. A 1 x 1 cm pledget was placed in the inferior fornix. The eye was patched shut for 5 minutes. The patch was removed. The eye was sterilely prepped and draped in the usual manner. Lid speculum was placed in the eye. The pledgets were removed and 4-0 black silk sutures were placed around the superior and the inferior rectus muscles to be used as traction. A conjunctival peritomy was made at the 10 o'clock position. Hemostasis was obtained with bipolar cautery. A posterior limbal groove was created using a crescent knife and dissected anteriorly towards the cornea. A sharp point blade was used to create a paracentesis site at the 2 o'clock position. A 2.4 mm keratome was used to enter the anterior chamber through the groove. Viscoelastic was injected into the anterior chamber. An anterior capsulotomy was performed using Utrata forceps in a capsulorrhexis fashion. Hydrodissection and hydrodelineation were performed. Phacoemulsification was performed in [id number] technique. Total phaco time was 6.4 CDE. Following this, the I/A unit was used to remove residual cortex. Viscoelastic was injected into the capsular bag. Intraocular lens model ZCB00, 23.5 diopters, serial number [id number], was placed in the capsular bag. The I/A unit was used to remove residual viscoelastic. The wound was seen to be watertight under high and low pressure, and no sutures were placed. The intraocular lens was well centered. The pressure was adjusted in the eye to normal pressure. The 4-0 black silk sutures and lid speculum were removed. The eye was shielded after Besivance drops were placed. The patient tolerated the procedure well and was sent to the recovery room in good condition. Also, 0.1 mL of phenylephrine lidocaine was injected into the eye following the incision. A drop of Cosopt was placed in the eye at the end of the surgery. DICTATING PHYSICIAN: VOLODYMYR FLORES M.D. [id number] Y#: [id number] ID: [id number] JOB#: [id number] ACCT: [id number] cc:VOLODYMYR FLORES M.D. >
== END 2018-12-19 10:51 ==
LOC: SC 08:06
PROVIDERS: ATTEND Ophthalmology
DX: H25.813 Combined forms of age-related cataract, bilateral (principal); H57.03 Miosis; H16.223 Keratoconjunctivitis sicca, not specified as Sjogren's, bilateral; E11.3293 Type 2 diabetes mellitus with mild nonproliferative diabetic retinopathy without macular edema, bilateral; H47.20 Unspecified optic atrophy; H01.002 Unspecified blepharitis right lower eyelid; I10 Essential (primary) hypertension; K21.9 Gastro-esophageal reflux disease without esophagitis; I49.9 Cardiac arrhythmia, unspecified; Z79.82 Long term (current) use of aspirin; Z79.84 Long term (current) use of oral hypoglycemic drugs; Z79.4 Long term (current) use of insulin; Z79.899 Other long term (current) drug therapy
CPT/HCPCS: 66984; 82962; J2250; J3490 ×4; A9270; J0171; J2370; V2632

== ENCOUNTER → 2019-01-23 | Outpatient (CLI) | payer MEDICARE, OTHER ==
--- NOTE | 2019-01-25 15:38 | XCELERA REPORT ---
[address] [address] Lower Extremity Arterial Evaluation Name: TONIA HERNANDEZ RICHARD, JR Age: 74 yrs Gender: Male : 1945 Patient Status: Outpatient Patient Location: [place] Study Date: 01/23/2019 02:23 PM Procedure: A color flow and duplex scan of the lower extremity arteries was performed bilaterally with velocity and waveform anaylsis. Reason For Study: PVD Ordering Physician: FEDERICA REN Performed By: Sridhar Gurrola Measurements and Calculations Right Left TRACK WATCHMAN PSV 202.3 153.2 cm/sec Prox PFA PSV -140.6 83.0 cm/sec Prox SFA PSV 149.0 136.7 cm/sec Mid SFA PSV -113.8 -108.1cm/sec Dist SFA PSV -100.4 -123.2cm/sec Prox Pop A PSV 119.1 127.1 cm/sec Dist ZHANNA PSV 99.1 37.1 cm/sec Mid CMS EXPERT PSV 20.6 cm/sec Dist CMS EXPERT PSV 78.1 23.4 cm/sec Abdon Pedis PSV -102.1 84.3 cm/sec Right Side Arterial Evaluation High normal velocity and triphasic waveforms noted from the Common Femoral artery to the Popliteal. Biphasic with normal velocity, minimal spectral broadening in the infrageniculate vessels . Ankle Brachial index not obtained. Left Side Arterial Evaluation Normal velocity and triphasic waveforms noted from the Common Femoral artery to the Popliteal. Biphasic with normal velocity, moderate spectral broadening in the Anterior Tibial . Biphasic with low velocity, moderate spectral broadening, reversal of flow in a collateral vessel, in the Posterior Tibial . Ankle Brachial index not obtained. Interpretation Summary Mild hemodynamically significant lesions in the right lower extremity only, on duplex imaging, at rest. Moderate hemodynamically significant lesions in the left lower extremity only, on duplex imaging, at rest. Duplex findings indicate infrageniculate disease, bilaterally, hint of stenosis in the right common Femoral. There is probably obstruction, reconstitution in the left Posterior Tibial artery. : FEDERICA REN > Federica Ren
== END ==
LOC: RAD 13:50
PROVIDERS: ATTEND Surgery
DX: M79.606 Pain in leg, unspecified (principal); I87.309 Chronic venous hypertension (idiopathic) without complications of unspecified lower extremity; I73.9 Peripheral vascular disease, unspecified
CPT/HCPCS: 93925

== ENCOUNTER 2019-01-30 07:09 | Day surgery (SDC) | payer MEDICARE, OTHER ==
[~2019-01-30 07:09] MED LIST changes: +BUPIVACAINE HCL 0.75% INJ/PF (7.5 MG/1 ML) 10 ML SDV OD PRN; -BUPIVACAINE HCL 0.75% INJ/PF (7.5 MG/1 ML) 10 ML SDV OS PRN; +KETOROLAC TROMETHAMINE 0.45% 4 DROP/0.4 ML DROPERETTE OD PRN; -KETOROLAC TROMETHAMINE 0.45% 4 DROP/0.4 ML DROPERETTE OS PRN; -LIDOCAINE 1% INJ-PF (10 MG/ML) 30 ML SDV ONE; +LIDOCAINE 4% INJ/PF (40 MG/ML) 5 ML AMPUL OD PRN; -LIDOCAINE 4% INJ/PF (40 MG/ML) 5 ML AMPUL OS PRN; -MIDAZOLAM 2 MG/2 ML INJ ONE; +TETRACAINE HCL 0.5% OPH SOLN 4 ML OD PRN
[2019-01-30] MEDS ORDERED: FENTANYL CITRATE INJ/PF 100 MCG/2 ML AMPUL ONE (07:11)
[2019-01-30] MEDS ORDERED: MIDAZOLAM 2 MG/2 ML INJ ONE (07:11)
[2019-01-30] MEDS ORDERED: ONDANSETRON HCL INJ/PF 4 MG/2 ML SDV ONE (07:11)
[2019-01-30] MEDS ORDERED: LIDOCAINE 1%/PHENYLEPHRINE 1.5% 1 ML VIAL ONE (07:25)
[2019-01-30] MEDS ORDERED: EPINEPHRINE INJ/PF 1 MG/1 ML AMPULE ONE (07:25)
[2019-01-30] MEDS ORDERED: CHONDR SU A NA/HYALUR INTRAOC KIT (SURGICARE) ONE (07:26)
[2019-01-30] MEDS: TETRACAINE HCL 0.5% OPH SOLN 0.6 ML DROPERETTE OD PRN ×3 (07:40→08:26)
[2019-01-30] MEDS: BESIFLOXACIN HCL 0.6% OPH SUSP 5 ML BOTTLE OD PRN ×4 (07:40→08:49)
[2019-01-30] MEDS: TROPICAMIDE 1% OPH SOLN 3 ML OD PRN ×3 (07:40→08:00)
[2019-01-30] MEDS: CYCLOPENTOLATE 0.2%/PHENYLEPHRINE 1% OPH SOLN 2 ML OD PRN ×3 (07:40→08:00)
[2019-01-30] MEDS: DORZOLAMIDE HCL 2%/TIMOLOL MALEAT 0.5% OPH SOLN 10 ML OD PRN ×2 (08:49)
--- NOTE | 2019-01-30 08:58 | Operative Report ---
Operative Report-[facility] Operative Report: DATE OF SURGERY: 01/30/2019 PREOPERATIVE DIAGNOSIS: CATARACT, RIGHT EYE. POSTOPERATIVE DIAGNOSIS: CATARACT, RIGHT EYE. PROCEDURE PERFORMED: PHACOEMULSIFICATION WITH POSTERIOR CHAMBER INTRAOCULAR LENS, RIGHT EYE. Intraocular Lens Model : ZCB00 24.0 Total Phaco Time: 7.12 CDE SURGEON: VOLODYMYR FLORES MD ANESTHESIA: TOPICAL WITH MAC. INDICATIONS FOR SURGERY: Difficulty driving at night. PROCEDURE: The patient was brought to the Operating Room and placed on the operative table. Following tetracaine drops, topical anesthesia was administered. This consisted of instrument wipe pledgets soaked in a solution of 4% Xylocaine mixed with 0.75% Marcaine in a 1:2 ratio. A 2 x 1 cm pledget was placed in the superior fornix. A 1 x 1 cm pledget was placed in the inferior fornix. The eye was patched shut for 5 minutes. The patch was removed. The eye was sterilely prepped and draped in the usual manner. Lid speculum was placed in the eye. The pledgets were removed. 4-0 black silk sutures were placed around the superior and the inferior rectus muscles to be used as traction. A conjunctival peritomy was made at the 10 o'clock position. Hemostasis was obtained with bipolar cautery. A posterior limbal groove was created using a crescent knife and dissected anteriorly towards the cornea. A sharp point blade was used to create a paracentesis site at the 2 o'clock position. 0.2 cc non preserved Lidocaine was injected into the anterior chamber. A 2.4 mm keratome was used to enter the anterior chamber through the groove. Viscoelastic was injected into the anterior chamber. An anterior capsulotomy was performed using Utrata forceps in a capsulorrhexis fashion. Hydrodissection and hydrodelineation were performed. Phacoemulsification was performed in [id number] technique. Following this, the I/A unit was used to remove residual cortex. Viscoelastic was injected into the capsular bag. The Intraocular lens was placed in the capsular bag. The I/A unit was used to remove residual viscoelastic. The wound was seen to be watertight under high and low pressure, and no sutures were placed. The intraocular lens was well centered. The pressure was adjusted in the eye to normal pressure. The 4-0 black silk sutures and lid speculum were removed. The eye was shielded after Besivance and Cosopt drops were placed. The patient tolerated the procedure well and was sent to the Recovery Room in good condition.
== END 2019-01-30 09:37 | disposition home or self-care (01) ==
LOC: SC 07:09
PROVIDERS: ATTEND Ophthalmology
DX: H25.811 Combined forms of age-related cataract, right eye (principal); I10 Essential (primary) hypertension; E11.9 Type 2 diabetes mellitus without complications; K21.9 Gastro-esophageal reflux disease without esophagitis; I48.91 Unspecified atrial fibrillation; Z79.84 Long term (current) use of oral hypoglycemic drugs; Z79.4 Long term (current) use of insulin; Z86.73 Personal history of transient ischemic attack (TIA), and cerebral infarction without residual deficits; Z79.899 Other long term (current) drug therapy
CPT/HCPCS: 66984; 82962; V2632; J2250; J3490 ×4; A9270; J0171; J3010; J2405; J2370

== ENCOUNTER → 2019-10-02 | Outpatient (CLI) | payer MEDICARE, OTHER ==
[~2019-10-02] MED LIST changes: -BUPIVACAINE HCL 0.75% INJ/PF (7.5 MG/1 ML) 10 ML SDV OD PRN; -KETOROLAC TROMETHAMINE 0.45% 4 DROP/0.4 ML DROPERETTE OD PRN; -LIDOCAINE 4% INJ/PF (40 MG/ML) 5 ML AMPUL OD PRN; +REGADENOSON INJ 0.4 MG/5 ML DISP.SYRIN IV ONE; -TETRACAINE HCL 0.5% OPH SOLN 4 ML OD PRN
--- NOTE | 2019-10-02 10:47 | DRAGON STRESS TEST REPORT ---
The patient underwent a stress/rest, single isotope SPECT Imaging with pharmaological stress and gated SPECT imaging on for evaluation of CAD ON OCTOBER 09. The patient underwent infusion of regadnoson mg IV using the standard protocol. The heart rate was 68 beats per minute at baseline and increased to 80 beats during the infusion of regadenoson. The resting blood pressure was 149/50 mm/Hg and decreased to 131/50 mm/Hg, which is a normal response. The patient had no complaints during the procedure. The resting electrocardiogram demonstrated NSR with RBBB and did not show ST- segment changes consistent with ischemia. Myocardial perfusion imaging was performed at rest following the injection of 11.92 mCi of sestamibi. At peak pharmacolgic effect, the patient was injected with 36.7 mCi of sestamibi. Gating post-stress tomographic imaging was performed 60 minutes after stress. Findings The overall quality of the study is excellent. Raw images demonstrate very mild inferior wall gut contamination. Left ventricular cavity is noted to be normal on the rest and stress studies. Resting SPECT images demonstrate a small, of mild intensity perfusion defect in the inferior wall. The stress images reveal a small, of mild intensity perfusion defect in the inferior wall. Gated SPECT imaging reveals normal myocardial thickening and wall motion. The left ventricular ejection fraction was calculated to be 46% Impression -Myocardial perfusion imaging is abnormal with the above artifacts. -There is scintigraphic evidence of infarct vs diaphragmatic attenuaton artfact in the inferior wall. -Overall left ventricular systolic function was mildly depressed at 46%. -There are no prior studies for comparison. [facility]
== END ==
LOC: RAD 06:44
PROVIDERS: ATTEND Internal Medicine Cardiovascular Disease
DX: I25.10 Atherosclerotic heart disease of native coronary artery without angina pectoris (principal); I10 Essential (primary) hypertension
CPT/HCPCS: 93017; 78452; A9500; J2785; Q9969

== ENCOUNTER → 2019-11-22 | Outpatient (CLI) | payer MEDICARE, OTHER ==
--- NOTE | 2019-11-22 17:22 | RADIOLOGY REPORT (SQ) ---
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 TECHNIQUE: Multiplanar imaging includes non-contrasted T1, T2, FLAIR, diffusion with ADC map and pos t gadolinium contrast sequences. Additional thin slice images with and without gadolinium contrast a cquired of the orbits. Images stored on PACS. CONTRAST TYPE AND DOSE: 15 mL mL Prohance. RENAL FUNCTION: Not indicated. ACR Type II contrast agent associated with few, if any, unconfounded cases of NSF LIMITATIONS: None. FINDINGS: ANATOMY: No anomalies. Normal vascular flow voids. Pituitary fossa normal. CSF SPACES: Atrophy induced prominence of ventricles and CSF spaces. CEREBRUM: High signal intensity lesions scattered through white matter on FLAIR imaging with distribu tion suggesting chronic micro-vascular ischemic changes. No hemorrhage. No edema, masses or mass ef fect. No enhancing lesions. POSTERIOR FOSSA: No signal alteration. No edema, masses, mass effect. Internal Auditory Canals, Cereb ello-pontine angles, mastoids normal. No enhancing lesions. DIFFUSION IMAGING: Negative for acute or sub-acute infarction. ORBITS: No masses. Globes normal. Extraocular muscles and optic nerves normal. Orbital fat clear. No inflammatory changes or enhancement. PARANASAL SINUSES: Trace mucosal thickening is seen of the maxillary sinuses and ethmoid air cells. No fluid levels. OTHER: The abducens nerves demonstrate normal caliber, signal, and course as visualized. No abnormal enhancement or signal is seen in the region of the abducens nuclei. IMPRESSION: ATROPHY AND CHRONIC MICRO-VASCULAR ISCHEMIC CHANGES. OTHERWISE NORMAL MRI OF THE BRAIN A ND ORBITS WITHOUT AND WITH INTRAVENOUS GADOLINIUM CONTRAST. TECHNICAL DOCUMENTATION: JOB ID: [id number] 2010 [employer]- All Rights Reserved Reading location - IP/workstation name: [email or web address]
== END ==
LOC: RAD 12:04
PROVIDERS: ATTEND Ophthalmology
DX: H49.22 Sixth [abducent] nerve palsy, left eye (principal)
CPT/HCPCS: 82565; 70553; A9576

== ENCOUNTER → 2020-01-29 | Outpatient (CLI) | payer MEDICARE, OTHER ==
--- NOTE | 2020-01-29 14:45 | RADIOLOGY REPORT (SQ) ---
EXAM DESCRIPTION: [facility] GASTRIC EMPTYING STUDY IMAGES COMPLETED DATE/TIME: 01/29/2020 1:45 pm REASON FOR STUDY: GASTROPARESIS K31.84 GASTROPARESIS COMPARISON: None. RADIONUCLIDE AND DOSE: 2 millicuries Tc-99m Sulfur Colloid. Egg salad sandwich The route of agent administration: Oral. TECHNIQUE: 1 minute serial static imaging performed at time of meal, 1 hour, 2 hours, 3 hours, and 4 hours as needed. Once stomach reaches 90% emptying, the test is complete. Image intensity values pl otted with respect to time with linear regression algorithm. LIMITATIONS: None. FINDINGS: Patient was observed for 4 hours. 58.3 Immediate post meal serves as baseline. Gastric emptying at 30 was 0%. Gastric emptying at 60 minutes was 5.8% Gastric emptying at 90 minutes was 58.3%. Gastric emptying at 120 minutes was 90.2%. Gastric emptying at 240 minutes was 100%. Normal values: 60 minutes: 30-90% retained. If less than 30%, abnormally rapid emptying. If greater than 90%, delaye d gastric emptying. 120 minutes: <60% retained. If greater than 60%, delayed gastric emptying. 240 minutes: <10% retained. If greater than 10%, delayed gastric emptying. IMPRESSION: NORMAL GASTRIC EMPTYING. TECHNICAL DOCUMENTATION: JOB ID: [id number] 2010 [employer]- All Rights Reserved Reading location - IP/workstation name: [email or web address]
== END ==
LOC: RAD 07:27
PROVIDERS: ATTEND Internal Medicine Gastroenterology
DX: K31.84 Gastroparesis (principal)
CPT/HCPCS: 78264; A9541